=== PATIENT | female | born 1980 | race Caucasian/White ===

== ENCOUNTER 2019-09-08 11:14 | Emergency (ER) | payer MEDICAID, OTHER ==
[~2019-09-08] VITALS: Ht 162 cm; Wt 77.4 kg
[~2019-09-08 11:14] MED LIST: AMOX500C2 PO; ANTI14DR4 OT; CLON1TAB36 PO; HYDR-3456 PO; HYDR-3720 PO; ONDA8TAB13 PO; PRD20T PO; TRAM50TA2 PO
--- NOTE | 2019-09-08 11:40 | ED Chest Pain ---
General Chief Complaint: Chest Wall Stated Complaint: R BREAST PAIN Nursing Triage Note: Pt presents to ed with complaints of r breast and r rib cage pain x 3 days. Pt reports she was leaning over the cab of the truck three days ago and felt a "pop" around her r breast area. Pt states it took her breath away. pt reports she was playing with her 3 year old grandson last night and got kicked in the same area which has increased her discomfort. pt reports movement and deep breaths increase her pain. Nursing Sepsis Screen: No Definite Risk Source: patient Exam Limitations: no limitations History of Present Illness Date Seen by Provider: Sep 08, 2019 Time Seen by Provider: 11:38 Initial Comments To ER for further vehicle from home with reports of right lateral chest wall pain that began after bending over the truck and she felt a popping sensation in this location. She's had persistent pain with movement and deep breathing since then, was accidentally kicked by her grandson in this area last night which exacerbated the pain. She took ibuprofen this morning and denies improvement in pain. Timing/Duration: 2-3 days Severity/Quality: moderate Location: other (right lateral chest) Radiation: no radiation Activities at Onset: none ASA po DOG CATCHER: No NTG SL DOG CATCHER: No Associated Symptoms: No shortness of breath Allergies and Home Medications Allergies Coded Allergies: No Known Drug Allergies (Unverified , 12/14/13) Home Medications No Active Prescriptions or Reported Meds Patient Home Medication List Home Medication List Reviewed: Yes Review of Systems Review of Systems Constitutional: see HPI EENTM: No Symptoms Reported Respiratory: No Symptoms Reported Cardiovascular: See HPI, Chest Pain Gastrointestinal: See HPI Genitourinary: No Symptoms Reported Musculoskeletal: no symptoms reported Skin: no symptoms reported Psychiatric/Neurological: No Symptoms Reported Endocrine: No Symptoms Reported Hematologic/Lymphatic: No Symptoms Reported Past Zafemwc-Xqjuzu-Pohyvv Hx Patient Social History Alcohol Use: Denies Use Recreational Drug Use: No Smoking Status: Current Everyday Smoker Type Used: Cigarettes Recent Foreign Travel: No Contact w/Someone Who Travel: No Recent Infectious Disease Expo: No Physical Abuse: No Sexual Abuse: No Mistreated: No Fear: No Past Medical History Surgeries: Yes (LAP ABD SURG) Gallbladder, Hysterectomy, 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 Respiratory: No Cardiac: Yes Neurological: Yes 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 oz. 68.293299hr; 29.00 BMI Method:Stated General Appearance: No Apparent Distress, WD/WN Neck: Full Range of Motion, Normal Inspection Respiratory: No Accessory Muscle Use, No Respiratory Distress, Other (right lateral chest wall tenderness palpation without crepitus, no ecchymosis or erythema.) Cardiovascular: Regular Rate, Rhythm, Normal Peripheral Pulses Gastrointestinal: Normal Bowel Sounds, Non Tender, Soft Extremity: Normal Capillary Refill, Normal Inspection Neurologic/Psychiatric: Alert, Oriented x3 Skin: Normal Color, Warm/Dry Progress/Results/Core Measures Results/Orders My Orders Orders - SHAMEKA SAM APRN Ribs/Unilateral With Chest (09/08/19 11:35) Vital Signs/I&O 09/08/19 11:26 Temp 36.6 Pulse 67 Resp 18 B/P (MAP) 124/82 (96) Pulse Ox 99 Blood Pressure Mean: 96 POS Departure Impression Primary Impression: Rib pain Disposition: 01 HOME, SELF-CARE Condition: Stable Departure-Patient Inst. Decision time for Depature: 12:21 Referrals: NO,LOCAL PHYSICIAN (PCP/Family) Primary Care Physician Patient Instructions: Chest Pain (DC) Add. Discharge Instructions: 1. Medication as directed 2. Follow-up with your doctor next week 3. When this pain medication runs out use Tylenol and ibuprofen. Scripts Hydrocodone/Acetaminophen ([place] 5-325 Tablet) 1 Each Tablet 1 TAB PO Q4-6HR for Pain MDD 10 TABS for 7 Days, #10 TAB Prov: SHAMEKA SAM APRN 09/08/19 Images Torso/Trunk 1 - Tenderness SHAMEKA SAM APRN Sep 08, 2019 11:40 POS
[2019-09-08] MEDS ORDERED: HYDR-4226 PO (12:22)
--- NOTE | 2019-09-08 12:24 | Diagnostic Imaging Report ---
INDICATION: Pain. COMPARISON: None available. TECHNIQUE: Four radiographs of the chest and right-sided ribs dated September 08, 2019. FINDINGS: The cardiac silhouette and pulmonary vasculature are within normal limits. The lungs are clear. No pleural effusion. No pneumothorax. Surgical clips within the right upper quadrant of the abdomen. No displaced or healing rib fracture. No suspicious radiopaque foreign body. IMPRESSION: 1. No acute cardiopulmonary abnormality. 2. No displaced or healing rib fracture. Dictated by: Dictated on workstation # [id number]
[2019-09-08] MEDS ORDERED: HYDROcodone/APAP 5 MG/325 MG (LORTAB) TAB PO ONE (12:30)
[2019-09-08 12:50] VITALS: BP 120/81
== END 2019-09-08 12:45 | disposition home or self-care (01) ==
LOC: EDUNIT# 11:14 → ER 11:17
DX: R07.81 Pleurodynia (principal); F17.210 Nicotine dependence, cigarettes, uncomplicated; Z90.710 Acquired absence of both cervix and uterus; Z98.51 Tubal ligation status
CPT/HCPCS: 71101

== ENCOUNTER 2019-09-25 14:26 | Emergency (ER) | payer MEDICAID ==
[~2019-09-25] VITALS: Ht 162 cm; Wt 83.0 kg
[~2019-09-25 14:26] MED LIST changes: +HYDR-4226 PO
[2019-09-25] MEDS ORDERED: LIDOCAINE 1% INJ 20 ML 20 ML VIAL INJ ONE (15:00)
[2019-09-25] MEDS ORDERED: KETOROLAC 30 MG/ML VIAL IVP ONE (15:00)
--- NOTE | 2019-09-25 15:00 | ED Lower Extremity ---
General Chief Complaint: Skin/Wound Problems Stated Complaint: RT GREAT TOENAIL PAIN Nursing Triage Note: 1 week ago, rt great toe red arounf nail, nail is curving in Nursing Sepsis Screen: No Definite Risk Source: patient Exam Limitations: no limitations History of Present Illness Date Seen by Provider: Sep 25, 2019 Time Seen by Provider: 14:47 Initial Comments The patient presents to ER by private conveyance with chief complaint last several days progressively worsening pain and redness swelling along the medial side of her right great toe and the lateral side as well. She's not having any discharge fever or chills. She is not diabetic. She is not immunocompromised. She has not been using anything for pain. Allergies and Home Medications Allergies Coded Allergies: No Known Drug Allergies (Unverified , 12/14/13) Home Medications Hydrocodone/Acetaminophen 1 Each Tablet, 1 TAB PO Q4-6HR Prescribed by: SHAMEKA SAM on 09/08/19 1222 Patient Home Medication List Home Medication List Reviewed: Yes Review of Systems Constitutional: No chills, No diaphoresis EENTM: No hearing loss, No blurred vision Respiratory: No cough, No short of breath Cardiovascular: No chest pain, No edema Gastrointestinal: No abdominal pain, No nausea Genitourinary: No discharge, No dysuria Past Pwfbihx-Hmmwdw-Vmvizt Hx Patient Social History Alcohol Use: Occasionally Uses Recreational Drug Use: Yes Drug of Choice: THC Type Used: Cigarettes 2nd Hand Smoke Exposure: No Recent Foreign Travel: No Contact w/Someone Who Travel: No Recent Infectious Disease Expo: No Recent Hopitalizations: No Physical Abuse: No Sexual Abuse: No Mistreated: No Fear: No Past Medical History Surgeries: Yes (LAP ABD SURG) Gallbladder, Hysterectomy, Orthopedic, 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 Respiratory: No Cardiac: No Neurological: Yes Headaches /Migraines Reproductive Disorders: No 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 oz. 68.036528zc; 31.00 BMI Method:Stated General Appearance: WD/WN, no apparent distress HEENT: PERRL/EOMI, pharynx normal Cardiovascular: normal peripheral pulses, regular rate, rhythm, no edema Respiratory: no respiratory distress, no accessory muscle use Feet: left foot non-tender, left foot normal inspection; bilateral foot normal range of motion; left foot no evidence of injury; right foot pain (great toe), right foot soft tissue tenderness, right foot swelling Neurologic/Psychiatric: no motor/sensory deficits, alert, oriented x 3 Skin: other (erythema, mild swelling around the ingrown toenail right great toe medial and lateral) Procedures/Interventions Progress Risks, benefits and alternatives were explained. The patient consented to doing right great toe and lateral paronychia incision and drainage. Site was cleaned thoroughly with Betadine and allowed to dry and then cleaned again with alcohol. A digital block was performed using a total of 5 cc 1% lidocaine without epinephrine. When the patient was determined to be anesthetized we used scissors, hemostat and needle charter and tour bus driver to elevate the medial edge of the great toe nail and then cut and Removed it followed by the lateral edge. Patient tolerated procedure well. Progress/Results/Core Measures Results/Orders My Orders Orders - PRASHANT COLLINS Ketorolac Injection (Toradol Injection) (09/25/19 15:00) Lidocaine 1% Inj 20 Ml (Xylocaine 1% Inj (09/25/19 15:00) Medications Given in ED Current Medications Medications Dose Ordered Sig/Sena Route Start Time Stop Time Status Last Admin Dose Admin Ketorolac Tromethamine 30 mg ONCE ONCE IVP 09/25/19 15:00 09/25/19 15:01 DC 09/25/19 15:06 30 MG Vital Signs/I&O 09/25/19 14:44 Temp 36.8 Pulse 87 Resp 14 B/P (MAP) 112/74 (87) Pulse Ox 97 Blood Pressure Mean: 87 POS Progress Progress Note : Time: 14:59 Progress Note Discuss surgical treatment for paronychia and she agrees to pursue this. We'll plan to do a digital block. Prophylactic antibiotics for 5 days. Departure Impression Primary Impression: Paronychia due to ingrown nail Disposition: HOME, SELF-CARE Condition: Improved Departure-Patient Inst. Decision time for Depature: 15:46 Referrals: [facility] (PCP) Primary Care Physician SHANTHI JARRELL APRN (Family) Primary Care Physician Patient Instructions: Paronychia (DC), Wound Incision and Drainage (DC) Add. Discharge Instructions: Keep the wound clean with regular soap and water only. Treatment with Vaseline followed by gauze changed daily until the skin heals over. Take the Bactrim one tablet twice a day for the next 5 days to prevent infection. Follow-up primary care if you have worsening redness swelling and pain. Naproxen 2 tablets twice daily as needed for pain. Elevate the foot, use warm compresses and wear well fitting, ventilated shoes that will protect the toenail from damage. Change the dressing daily and as often as it becomes soiled. All discharge instructions reviewed with patient and/or family. Voiced understanding. Scripts Sulfamethoxazole/Trimethoprim (Bactrim Ds Tablet) 1 Each Tablet 1 EACH PO BID WITH MEALS for 5 Days, #10 TAB 0 Refills Prov: PRASHANT COLLINS 09/25/19 PRASHANT COLLINS Sep 25, 2019 15:00 POS
[2019-09-25] MEDS ORDERED: SULF1TAB35 PO (15:49)
[2019-09-25] MEDS ORDERED: HYDR-3990 PO (15:51)
[2019-09-25 16:02] VITALS: BP 128/71
[2019-09-25] MEDS ORDERED: OXYC5CAP18 PO (17:01)
== END 2019-09-25 16:02 | disposition home or self-care (01) ==
LOC: EDUNIT# 14:26 → ER 14:27
DX: L03.031 Cellulitis of right toe (principal); L60.0 Ingrowing nail; G43.909 Migraine, unspecified, not intractable, without status migrainosus; M51.36 Other intervertebral disc degeneration, lumbar region; Z90.710 Acquired absence of both cervix and uterus; Z98.51 Tubal ligation status
CPT/HCPCS: 99284

== ENCOUNTER 2020-03-11 17:28 | Emergency (ER) | payer MEDICAID ==
[~2020-03-11] VITALS: Ht 162 cm; Wt 90.0 kg
[~2020-03-11 17:28] MED LIST changes: +HYDR-3990 PO; +OXYC5CAP18 PO; +SULF1TAB35 PO
--- NOTE | 2020-03-11 17:43 | ED GU-Female ---
General Stated Complaint: L EAR PAIN,STD CHECK,THROAT PAIN Source: patient Exam Limitations: no limitations (PRASHANT COLLINS) History of Present Illness Date Seen by Provider: March 11, 2020 Time Seen by Provider: 17:30 Initial Comments Patient present ER by private conveyance with chief complaint of one week white, malodorous discharge from the vagina. She is sexually active with one partner read she prefers men over females. She is having no fevers abdominal pain diarrhea or constipation. She also had some pain in her ears right worse than left. No discharge. She has a bit of a sore throat but no difficulty swallowing fluids, food or air. In the past she had gonorrhea several years ago. She was appropriately treated at that time. She says she's here visiting family and friends. She says her partner will not talk to her after telling him about her discharge so she does not know if he has any symptoms. (PRASHANT COLLINS) Allergies and Home Medications Allergies Coded Allergies: No Known Drug Allergies (Unverified , 12/14/13) Home Medications Hydrocodone/Acetaminophen 1 Each Tablet, 1 TAB PO Q4-6HR Prescribed by: SHAMEKA SAM on 09/08/19 1222 Metronidazole 500 Mg Tablet, 500 MG PO BID Prescribed by: SHAMEKA SAM on 03/11/20 1812 Oxycodone HCl 5 Mg Capsule, 5 MG PO Q6H PRN for markel Prescribed by: PRASHANT COLLINS on 09/25/19 1701 Sulfamethoxazole/Trimethoprim 1 Each Tablet, 1 EACH PO BID WITH MEALS Prescribed by: PRASHANT COLLINS on 09/25/19 1549 Patient Home Medication List Home Medication List Reviewed: Yes (PRASHANT COLLINS) Review of Systems Review of Systems Constitutional: No chills, No diaphoresis EENTM: see HPI, ear pain, throat pain; No ear discharge, No hoarseness, No nose congestion, No throat swelling Respiratory: No cough, No short of breath Cardiovascular: No chest pain, No palpitations Gastrointestinal: No abdominal pain, No nausea Genitourinary: burning, discharge; denies dysuria : No Musculoskeletal: No back pain, No joint pain (PRASHANT COLLINS) All Other Systemes Reviewed Negative Unless Noted: Yes (PRASHANT COLLINS) Past Bcqlrwp-Zdpwrp-Wqksgi Hx Patient Social History Alcohol Use: Denies Use Recreational Drug Use: Yes Drug of Choice: THC Smoking Status: Current Everyday Smoker Type Used: Cigarettes 2nd Hand Smoke Exposure: No Recent Foreign Travel: No Contact w/Someone Who Travel: No Recent Hopitalizations: No (PRASHANT COLLINS) Past Medical History Surgeries: Yes (LAP ABD SURG) Gallbladder, Hysterectomy, Orthopedic, 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 Respiratory: No Cardiac: No Neurological: Yes Headaches /Migraines 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 oz. 68.186428ui; 31.00 BMI Method:Stated General Appearance: WD/WN, no apparent distress HEENT: PERRL/EOMI, TMs normal (clear mucoid effusion without bulging or retr action), pharyngeal erythema; No tonsillar exudate Neck: non-tender, supple, normal inspection Cardiovascular: normal peripheral pulses, regular rate, rhythm Respiratory: no respiratory distress, no accessory muscle use Gastrointestinal: non tender, soft Pelvic: normal external exam, discharge (thin yellowish white vaginal discharge) Neurologic/Psychiatric: alert, normal mood/affect, oriented x 3 Skin: normal color, warm/dry (PRASHANT COLLINS) Progress/Results/Core Measures Suspected Sepsis SIRS Temperature: Pulse: Respiratory Rate: Blood Pressure / Mean: (PRASHANT COLLINS) Results/Orders Lab Results Laboratory Tests Test 03/11/20 17:36 03/11/20 17:58 Range/Units Group A Streptococcus Screen NEGATIVE NEGATIVE (SHAMEKA SAM APRN) My Orders Orders - SHAMEKA SAM APRN Acetaminophen Tablet (Tylenol Tablet) (03/11/20 18:00) Ibuprofen Tablet (Motrin Tablet) (03/11/20 18:00) (SHAMEKA SAM APRN) Vital Signs/I&O Capillary Refill : (PRASHANT COLLINS) Progress Note : Time: 17:41 Progress Note Syphilis, gonorrhea, chlamydia swabs in the vagina down to the cervix. Wet prep. Rapid strep with subsequent throat culture. She has some clear mucoid effusion so we'll recommend Flonase for her ear pain. (PRASHANT COLLINS) Departure Impression Primary Impression: Otitis media with effusion Qualified Codes: H65.93 - Unspecified nonsuppurative otitis media, bilateral Additional Impressions: Vaginal discharge Trichomoniasis Disposition: HOME, SELF-CARE Condition: Stable Departure-Patient Inst. Decision time for Depature: 18:30 (PRASHANT COLLINS) Referrals: [facility]/ (PCP) Primary Care Physician SHANTHI JARRELL APRN (Family) Primary Care Physician Patient Instructions: STD Prevention, Serous Otitis Media (DC), Trichomoniasis (DC) Add. Discharge Instructions: We will call you with the results of your tests (chlaymdia, gonorrhea, syphilis) in the next 3-4 days.You were positive for Trichomomas tonight. You may follow-up with your primary care doctor to discuss results as well. 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 Scripts Metronidazole (Flagyl) 500 Mg Tablet 500 MG PO BID, #14 TAB Prov: SHAMEKA SAM APRN 03/11/20 PRASHANT COLLINS March 11, 2020 17:43 SHAMEKA SAM APRN March 11, 2020 18:12
[2020-03-11] MEDS ORDERED: AZITHROMYCIN 250 MG TAB (ZITHROMAX) PO ONE (18:00)
[2020-03-11] MEDS ORDERED: cefTRIAXone 250 MG/ML vial (IM ONLY) IM ONE (18:00)
[2020-03-11] MEDS ORDERED: IBUPROFEN 800 MG (MOTRIN) TAB PO ONE (18:00)
[2020-03-11] MEDS ORDERED: LIDOCAINE 1% INJ 20 ML 20 ML VIAL INJ ONE (18:00)
[2020-03-11] MEDS ORDERED: ACETAMINOPHEN 500 MG TAB (TYLENOL) PO ONE (18:00)
[2020-03-11] MEDS ORDERED: METR500T PO (18:12)
[2020-03-11 18:31] VITALS: BP 113/87
== END 2020-03-11 18:54 | disposition home or self-care (01) ==
LOC: EDUNIT# 17:28 → ER 17:30
DX: H65.93 Unspecified nonsuppurative otitis media, bilateral (principal); N89.8 Other specified noninflammatory disorders of vagina; A59.01 Trichomonal vulvovaginitis; F17.210 Nicotine dependence, cigarettes, uncomplicated; Z98.51 Tubal ligation status; Z90.710 Acquired absence of both cervix and uterus
CPT/HCPCS: 36415; 86780; 87210; 87430; 87491; 87591; 96372

== ENCOUNTER 2022-03-05 08:16 | Emergency (ER) | payer SELFPAY ==
[~2022-03-05] VITALS: Ht 163 cm; Wt 90.0 kg
[~2022-03-05 08:16] MED LIST changes: +METR500T PO; -SULF1TAB35 PO; +SULF1TAB38 PO
[2022-03-05] MEDS ORDERED: AMOX500C2 PO (08:39)
--- NOTE | 2022-03-05 08:40 | ED EENT ---
History of Present Illness General Chief Complaint: Dental Problems/Pain Stated Complaint: TOOTH ACHE Nursing Triage Note: PT STATES RT UPPER TOOTH PAIN THAT IS RADIATING TO HER EAR SINCE YESTERDAY Source: patient Exam Limitations: no limitations History of Present Illness Date Seen by Provider: March 05, 2022 Time Seen by Provider: 08:25 Initial Comments Right upper lateral incisor is chipped and causing her some pain for the past day and a half. No drainage. No bleeding. She has an appointment with a dentist in about a month. She is not on antibiotics. She says the pain is radiating into her right ear now. Allergies and Home Medications Allergies Coded Allergies: No Known Drug Allergies (Unverified , 12/14/13) Patient Home Medication List Home Medication List Reviewed: Yes Hydrocodone/Acetaminophen (Hydrocodone/Acetaminophen 5 MG/325 MG TAB) 1 Each Tablet, 1 TAB PO Q4-6HR Prescribed by: SHAMEKA SAM on 09/08/19 1222 Metronidazole (Flagyl) 500 Mg Tablet, 500 MG PO BID Prescribed by: SHAMEKA SAM on 03/11/20 1812 Oxycodone HCl (Oxycodone HCl) 5 Mg Capsule, 5 MG PO Q6H PRN for markel Prescribed by: PRASHANT COLLINS on 09/25/19 1701 Sulfamethoxazole/Trimethoprim (Bactrim Ds Tablet) 1 Each Tablet, 1 EACH PO BID WITH MEALS Prescribed by: PRASHANT COLLINS on 09/25/19 1549 Review of Systems Review of Systems Constitutional: No chills, No diaphoresis Eyes: Denies Blindness, Denies Drainage Ears: Denies Dizziness; Pain Nose: denies clots, denies congestion Mouth: see HPI, pain; denies swelling, denies purulent discharge Past Neaixai-Ddgrsq-Ptevwm Hx Patient Social History Tobacco Use?: Yes Smoking Status: Current Someday Smoker Substance use?: No Alcohol Use?: No Past Medical History Surgery/Hospitalization HX: BACK, HYST, GALLBLADDER, EXPLOR LAP Surgeries: Yes (LAP ABD SURG) Gallbladder, Hysterectomy, Orthopedic, 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 Respiratory: No Cardiac: No Neurological: Yes Headaches /Migraines 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 oz. 68.304307gj; 33.00 BMI Method:Stated General Appearance: WD/WN, no apparent distress Eyes: bilateral eye normal inspection, bilateral eye PERRL, bilateral eye EOMI Ears: bilateral ear auricle normal, bilateral ear canal normal, bilateral ear other (Bilateral TMs with mucoid effusion and retraction but no erythema injection or loss of landmarks.) Nose: normal inspection; No discharge Mouth/Throat: other (Extensive dental caries without fluctuance or pointing. Tenderness to the right upper maxillary teeth) Progress/Results/Core Measures Results/Orders My Orders Orders - PRASHANT COLLINS Ketorolac Injection (Toradol Injection) (03/05/22 08:45) Lidocaine 2% Viscous 15 Ml (Xylocaine Vi (03/05/22 08:45) Vital Signs/I&O 03/05/22 08:22 Temp 36.5 Pulse 60 Resp 18 B/P (MAP) 131/85 (100) Pulse Ox 97 O2 Delivery Room Air Blood Pressure Mean: 100 Progress Progress Note : Time: 08:38 Progress Note Toradol, viscous lidocaine and amoxicillin Departure Impression Primary Impression: Dental abscess Disposition: 01 HOME, SELF-CARE Condition: Stable Departure-Patient Inst. Decision time for Depature: 08:38 Referrals: [facility] (PCP) Primary Care Physician SOULEYMANE TAVERAS APRN (Family) Primary Care Physician Patient Instructions: Dental Pain (DC) Add. Discharge Instructions: Amoxicillin 500 mg 3 times a day for 7 to 10 days until the pain resolves. Keep your follow-up appointments with a dentist. Viscous lidocaine 5 cc on gauze packed over the tooth in question every 6 hours as needed for pain. Ibuprofen 800 mg every 8 hours as needed for pain. Tylenol 1000 g every 8 hours as needed for pain. Warm compresses as needed for pain. All discharge instructions reviewed with patient and/or family. Voiced understanding. Scripts Amoxicillin (Amoxicillin) 500 Mg Capsule 500 MG PO TID for 10 Days, #30 CAP 0 Refills Prov: PRASHANT COLLINS 03/05/22 Work/School Note: Work Release Form Date Seen in the Emergency Department: March 05, 2022 Return to Work: March 06, 2022 Restrictions: No Restrictions PRASHANT COLLINS March 05, 2022 08:39
[2022-03-05] MEDS ORDERED: LIDOCAINE 2% VISCOUS 15 ML UDC PO ONE (08:45)
[2022-03-05] MEDS ORDERED: KETOROLAC 60 MG/2 ML VIAL IM ONE (08:45)
[2022-03-05 09:13] VITALS: BP 131/85
== END 2022-03-05 09:13 | disposition home or self-care (01) ==
LOC: EDUNIT# 08:16 → ER 08:18
DX: K04.7 Periapical abscess without sinus (principal); F17.200 Nicotine dependence, unspecified, uncomplicated
CPT/HCPCS: 96372; 99282

== ENCOUNTER 2022-03-07 00:27 | Emergency (ER) | payer SELFPAY ==
[2022-03-07] MEDS ORDERED: methylPREDNISolone 125 MG (Solu-MEDROL) VIAL IVP ONE (02:30)
[2022-03-07] MEDS ORDERED: CLINDAMYCIN 600 MG/4ML (CLEOCIN) VIAL IV STA (02:30)
[2022-03-07] MEDS ORDERED: KETOROLAC 30 MG/ML VIAL ONE (02:37)
[2022-03-07] MEDS ORDERED: diphenhydrAMINE 50 MG/ML INJ (BENADRYL) IVP ONE (02:45)
[2022-03-07] MEDS ORDERED: KETOROLAC 15 MG/ML VIAL IVP ONE (02:45)
--- NOTE | 2022-03-07 03:13 | ED EENT ---
History of Present Illness General Chief Complaint: Dental Problems/Pain Stated Complaint: INFECTED TOOTH,SWOLLEN FACE,PAIN Nursing Triage Note: PT AMB TO [facility] 4 WITH C/O WORSENING PAIN IN TOOTH AND THINKS THE INFECTION IS MOVING TO HER CHEEK AND EYE History of Present Illness Date Seen by Provider: March 07, 2022 Time Seen by Provider: 02:00 Initial Comments 42-year-old female is here with complaints of dental caries and dental pain with swelling in her face and mouth area which started after she took amoxicillin for the tooth pain. Patient was in the ER 2 days ago was given a prescription of am oxicillin and was told to see a dentist. Patient has a dental appointment in March, but must continue walking this week when she developed swelling in her lower part of her face after she took the amoxicillin. Denies shortness of breath, chest pain, headache, dizziness, fever, diarrhea, abdominal pain. Patient has never had this reaction before. Allergies and Home Medications Allergies Coded Allergies: No Known Drug Allergies (Unverified , 12/14/13) Patient Home Medication List Home Medication List Reviewed: Yes Amoxicillin (Amoxicillin) 500 Mg Capsule, 500 MG PO TID Prescribed by: PRASHANT COLLINS on 03/05/22 0839 Hydrocodone/Acetaminophen (Hydrocodone/Acetaminophen 5 MG/325 MG TAB) 1 Each Tablet, 1 TAB PO Q4-6HR Prescribed by: SHAMEKA SAM on 09/08/19 1222 Metronidazole (Flagyl) 500 Mg Tablet, 500 MG PO BID Prescribed by: SHAMEKA SAM on 03/11/20 1812 Oxycodone HCl (Oxycodone HCl) 5 Mg Capsule, 5 MG PO Q6H PRN for markel Prescribed by: PRASHANT COLLINS on 09/25/19 1701 Sulfamethoxazole/Trimethoprim (Bactrim Ds Tablet) 1 Each Tablet, 1 EACH PO BID WITH MEALS Prescribed by: PRASHANT COLLINS on 09/25/19 1549 Review of Systems Review of Systems Constitutional: no symptoms reported Eyes: No Symptoms Reported Ears: No Symptoms Reported Nose: no symptoms reported Mouth: loose teeth, pain, other (dental caries which are extensive with gingival swelling) Throat: no symptoms reported Respiratory: no symptoms reported Cardiovascular: no symptoms reported Gastrointestinal: no symptoms reported Musculoskeletal: no symptoms reported Skin: no symptoms reported Neurological: No Symptoms Reported Hematologic/Lymphatic: No Symptoms Reported Immunological/Allergic: no symptoms reported Past Hghrcxb-Wffeay-Vserbq Hx Patient Social History Tobacco Use?: Yes Tobacco type used: Cigarettes Smoking Status: Current Everyday Smoker Substance use?: No Alcohol Use?: No Pt feels they are or have been: No Past Medical History Surgery/Hospitalization HX: BACK, HYST, GALLBLADDER, EXPLOR LAP Surgeries: Yes (LAP ABD SURG) Gallbladder, Hysterectomy, Orthopedic, 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 Respiratory: No Cardiac: No Neurological: Yes Headaches /Migraines Reproductive Disorders: No 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 oz. 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 ABDOMINAL PAIN:- NPO- CT ABDOMEN:- CBC/ CMP- Lipase- UA- Stool studies/ C. Diff- Troponin- Lactic acid- NS IVFTo upper lip and cheeks area on face with mild erythema) Progress/Results/Core Measures Results/Orders My Orders Orders - MAGGIE BORDEN MD Clindamycin Injection (Cleocin Injection (03/07/22 02:30) Methylprednisolone Sod Succ (Solu-Medrol (03/07/22 02:30) Diphenhydramine Injection (Benadryl Inje (03/07/22 02:45) Ketorolac Injection (Toradol Injection) (03/07/22 02:45) Ketorolac Injection (Toradol Injection) (03/07/22 02:37) Medications Given in ED Current Medications Medications Dose Ordered Sig/Sean Route Start Time Stop Time Status Last Admin Dose Admin Diphenhydramine HCl 25 mg ONCE ONCE IVP 03/07/22 02:45 03/07/22 02:46 DC 03/07/22 02:41 25 MG Ketorolac Tromethamine 15 mg ONCE ONCE IVP 03/07/22 02:45 03/07/22 02:46 DC 03/07/22 02:42 15 MG Methylprednisolone Sodium Succinate 125 mg ONCE ONCE IVP 03/07/22 02:30 03/07/22 02:33 DC 03/07/22 02:41 125 MG Vital Signs/I&O 03/07/22 00:43 Temp 35.9 Pulse 71 Resp 16 B/P (MAP) 100/60 (73) Blood Pressure Mean: 73 Progress Progress Note : Progress Note 1. DENTAL CARIES & GINGIVITIS - Stop Amoxicillin which was prescribed 2 days ago. 2. DRUG ALLERGY vs GINGIVITIS SWELLING AND INFECTION SPREADING TO THE FACE: - Clindamycin iv STAT with prescription sent home for 7 days. No respiratory distress. - Benadry. iv/ Solumedrol iv - NS IVF -The patient was seen in the ED, and treated appropriately to presentation at a specific point in time. Patient is informed that there is a possibility that disease and illness can evolve and change in acuity rapidly or slowly after patient is discharged from the ER. Precautionary advice given to the patient for immediate return to ER if symptoms worsen or do not resolve, and to seek emergency care sooner rather than later. Pt also advised on the importance of PCP follow up and compliance with management and follow up plan with PCP and/or specialist, as this is part of the management plan. Pt verbally expressed understanding. Departure Impression Primary Impression: Dental caries Additional Impressions: Gingivitis Allergy to amoxicillin Cellulitis and abscess of face Disposition: HOME, SELF-CARE Condition: Improved Departure-Patient Inst. Referrals: [facility] [place] Primary Care Physician SOULEYMANE TAVERAS APRN (Family) Primary Care Physician Patient Instructions: Dental Pain, Drug Allergy, Cellulitis (Skin Infection), Adult (DC), Tooth Decay, Adult (DC), Drug Allergy Add. Discharge Instructions: F/u as walk in to dental clinic tomorrow morning Clindamycin BID for 7 days F/u with PCP All discharge instructions reviewed with patient and/or family. Voiced unde rstanding. MAGGIE BORDEN MD March 07, 2022 03:13
[2022-03-07] MEDS ORDERED: CLIN-144 PO (03:36)
[2022-03-07 03:43] VITALS: BP 105/65
== END 2022-03-07 03:45 | disposition home or self-care (01) ==
LOC: EDUNIT# 00:27 → ER 00:31
DX: K05.10 Chronic gingivitis, plaque induced (principal); K02.9 Dental caries, unspecified; L03.211 Cellulitis of face; L02.01 Cutaneous abscess of face; F17.210 Nicotine dependence, cigarettes, uncomplicated; Z88.1 Allergy status to other antibiotic agents

== ENCOUNTER 2022-03-28 13:36 | Emergency (ER) | payer SELFPAY ==
[~2022-03-28] VITALS: Ht 162.5 cm; Wt 90.0 kg
[~2022-03-28 13:36] MED LIST changes: +CLIN-144 PO
--- NOTE | 2022-03-28 14:44 | ED General ---
General Chief Complaint: COVID19 Suspect/Confirmed Stated Complaint: FEVER,CHILLS Nursing Triage Note: PT AMB TO ED BY POV WITH C/O NAUSEA, SOTO, SOB, CHILLS, WEAKNESS, AND ACHINESS FOR THE LAST WEEK AND A HALF. Source of Information: Patient Exam Limitations: No Limitations History of Present Illness Date Seen by Provider: Mar 28, 2022 Time Seen by Provider: 14:34 Initial Comments This is a 42-year-old female who presented to the ER with complaints of nausea, weakness, abdominal pain, decreased appetite for the past week. States that she ran out of her Lyrica and initially thought that her symptoms were related to withdrawal. She is unable to afford this medication. Allergies and Home Medications Allergies Coded Allergies: No Known Drug Allergies (Unverified , 12/14/13) Patient Home Medication List Amoxicillin (Amoxicillin) 500 Mg Capsule, 500 MG PO TID Prescribed by: PRASHANT COLLINS on 03/05/22 0839 Clindamycin HCl (Clindamycin HCl) 300 Mg Capsule, 600 MG PO BID WITH MEALS Prescribed by: MAGGIE BORDEN MD on 03/07/22 0336 Hydrocodone/Acetaminophen (Hydrocodone/Acetaminophen 5 MG/325 MG TAB) 1 Each Tablet, 1 TAB PO Q4-6HR Prescribed by: SHAMEKA SAM on 09/08/19 1222 Metronidazole (Flagyl) 500 Mg Tablet, 500 MG PO BID Prescribed by: SHAMEKA SAM on 03/11/20 1812 Oxycodone HCl (Oxycodone HCl) 5 Mg Capsule, 5 MG PO Q6H PRN for markel Prescribed by: PRASHANT COLLINS on 09/25/19 1701 Sulfamethoxazole/Trimethoprim (Bactrim Ds Tablet) 1 Each Tablet, 1 EACH PO BID WITH MEALS Prescribed by: PRASHANT COLLINS on 09/25/19 1549 Past Vqglwnk-Kpfqvo-Bqmfbp Hx Patient Social History Tobacco Use?: Yes Tobacco type used: Cigarettes Smoking Status: Current Everyday Smoker Use of E-Cig and/or Vaping dev: No Substance use?: No Alcohol Use?: No Pt feels they are or have been: No Immunizations Up To Date Influenza Vaccine Up-to-Date: No; Not Current First/Initial COVID19 Vaccinat: N/A Past Medical History Surgery/Hospitalization HX: BACK, HYST, GALLBLADDER, EXPLOR LAP, FATTY LIVER, FIBROMYALGIA Surgeries: Yes (LAP ABD SURG) Gallbladder, Hysterectomy, Orthopedic, 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 Respiratory: No Cardiac: No Neurological: Yes Headaches /Migraines 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 oz. 68.942450ft; 34.00 BMI Method:Stated Progress/Results/Core Measures Suspected Sepsis SIRS Temperature: Pulse: 74 Respiratory Rate: 18 Laboratory Tests 03/28/22 14:52: White Blood Count 5.7 Blood Pressure 138 /95 Mean: 109 Laboratory Tests 03/28/22 14:52: Creatinine 0.68, Platelet Count 162, Total Bilirubin 0.6 Results/Orders Lab Results Laboratory Tests Test 03/28/22 13:53 03/28/22 14:52 Range/Units Influenza Type A (RT-PCR) Not Detected Not Detecte Influenza Type B (RT-PCR) Not Detected Not Detecte SARS-CoV-2 RNA (RT-PCR) Not Detected Not Detecte White Blood Count 5.7 4.3-11.0 10^3/uL Red Blood Count 4.93 3.80-5.11 10^6/uL Hemoglobin 14.9 11.5-16.0 g/dL Hematocrit 43 35-52 % Mean Corpuscular Volume 87 80-99 fL Mean Corpuscular Hemoglobin 30 25-34 pg Mean Corpuscular Hemoglobin Concent 35 32-36 g/dL Red Cell Distribution Width 13.6 10.0-14.5 % Platelet Count 162 130-400 10^3/uL Mean Platelet Volume 10.5 9.0-12.2 fL Immature Granulocyte % (Auto) 0 % Neutrophils (%) (Auto) 67 42-75 % Lymphocytes (%) (Auto) 24 12-44 % Monocytes (%) (Auto) 7 0-12 % Eosinophils (%) (Auto) 1 0-10 % Basophils (%) (Auto) 0 0-10 % Neutrophils # (Auto) 3.8 1.8-7.8 X 10^3 Lymphocytes # (Auto) 1.4 1.0-4.0 X 10^3 Monocytes # (Auto) 0.4 0.0-1.0 X 10^3 Eosinophils # (Auto) 0.0 0.0-0.3 10^3/uL Basophils # (Auto) 0.0 0.0-0.1 10^3/uL Immature Granulocyte # (Auto) 0.0 0.0-0.1 10^3/uL Urine Color YELLOW Urine Clarity CLEAR Urine pH 6.5 5-9 Urine Specific [place] <=1.005 1.016-1.022 Urine Protein NEGATIVE NEGATIVE Urine Glucose (UA) NEGATIVE NEGATIVE Urine Ketones NEGATIVE NEGATIVE Urine Nitrite NEGATIVE NEGATIVE Urine Bilirubin NEGATIVE NEGATIVE Urine Urobilinogen 0.2 < = 1.0 MG/DL Urine Leukocyte Esterase NEGATIVE NEGATIVE Urine RBC (Auto) NEGATIVE NEGATIVE Urine RBC NONE /HPF Urine WBC RARE /HPF Urine Squamous Epithelial Cells 0-2 /HPF Urine Crystals NONE /LPF Urine Bacteria NEGATIVE /HPF Urine Casts NONE /LPF Urine Mucus NEGATIVE /LPF Urine Culture Indicated NO Sodium Level 142 135-145 MMOL/L Potassium Level 3.5 L 3.6-5.0 MMOL/L Chloride Level 106 98-107 MMOL/L Carbon Dioxide Level 20 L 21-32 MMOL/L Anion Gap 16 H 5-14 MMOL/L Blood Urea Nitrogen 5 L 7-18 MG/DL Creatinine 0.68 0.60-1.30 MG/DL Estimat Glomerular Filtration Rate 111 BUN/Creatinine Ratio 7 Glucose Level 99 70-105 MG/DL Calcium Level 9.7 8.5-10.1 MG/DL Corrected Calcium 8.5-10.1 MG/DL Total Bilirubin 0.6 0.1-1.0 MG/DL Aspartate Amino Transf (AST/SGOT) 17 5-34 U/L Alanine Aminotransferase (ALT/SGPT) 33 0-55 U/L Alkaline Phosphatase 78 40-136 U/L Total Protein 8.0 6.4-8.2 GM/DL Albumin 4.7 H 3.2-4.5 GM/DL My Orders Orders - HERBERTH CORONEL APRN Covid 19 Inhouse Test (03/28/22 13:39) Influenza A And B By Pcr (03/28/22 13:39) Ondansetron Oral Dissolve Tab (Zofran (03/28/22 14:45) Cbc With Automated Diff (03/28/22 14:42) Comprehensive Metabolic Panel (03/28/22 14:42) Ua Culture If Indicated (03/28/22 14:42) Rx-Ondansetron Po (Rx-Zofran Po) (03/28/22 16:17) Medications Given in ED Current Medications Medications Dose Ordered Sig/Sena Route Start Time Stop Time Status Last Admin Dose Admin Ondansetron HCl 4 mg ONCE ONCE PO 03/28/22 14:45 03/28/22 14:46 DC 03/28/22 14:54 4 MG Vital Signs/I&O 03/28/22 13:50 Temp 37.0 Pulse 74 Resp 18 B/P (MAP) 138/95 (109) Pulse Ox 99 O2 Delivery Room Air Capillary Refill : Less Than 3 Seconds Blood Pressure Mean: 109 Departure Impression Primary Impression: Nausea Additional Impression: Diarrhea Disposition: 01 HOME, SELF-CARE Condition: Improved Departure-Patient Inst. Decision time for Depature: 16:20 Referrals: [facility] [place] Primary Care Physician SOULEYMANE TAVERAS APRN (Family) Primary Care Physician Patient Instructions: Dealing With Nausea and Vomiting From the Drugs You Take Add. Discharge Instructions: Plan: 1. Take Zofran one tablet every 6 hours a needed for nausea. 2. Follow up with your doctor for persistent symptoms. All discharge instructions reviewed with patient and/or family. Voiced understanding. HERBERTH CORONEL FOLDER INSPECTOR Mar 28, 2022 14:44
[2022-03-28] MEDS ORDERED: ONDANSETRON 4 MG (ZOFRAN) ORAL DISSOLVE TAB PO ONE (14:45)
[2022-03-28 15:02] LABS: BILIRUBIN,URINE NEGATIVE (NEGATIVE); CLARITY,URINE CLEAR; COLOR,URINE YELLOW; GLUCOSE, URINE (UA) NEGATIVE (NEGATIVE); KETONES,URINE NEGATIVE (NEGATIVE); LEUKOCYTE ESTERASE ,URINE NEGATIVE (NEGATIVE); NITRITE,URINE NEGATIVE (NEGATIVE); PH,URINE 6.5 (5-9); PROTEIN,URINE NEGATIVE (NEGATIVE)
[2022-03-28 15:04] LABS: BASOPHILS % (AUTO) 0 % (0-10); EOSINOPHILS % (AUTO) 1 % (0-10); HEMATOCRIT 43 % (35-52); HEMOGLOBIN 14.9 g/dL (11.5-16.0); LYMPHOCYTES # (AUTO) 1.4 X 10^3 (1.0-4.0); LYMPHOCYTES % (AUTO) 24 % (12-44); MEAN CORPUSCULAR HEMOGLOBIN 30 pg (25-34); MEAN CORPUSCULAR HGB CONC 35 g/dL (32-36); MEAN CORPUSCULAR VOLUME 87 fL (80-99); MEAN PLATELET VOLUME 10.5 fL (9.0-12.2); MONOCYTES # (AUTO) 0.4 X 10^3 (0.0-1.0); MONOCYTES % (AUTO) 7 % (0-12); NEUTROPHILS # (AUTO) 3.8 X 10^3 (1.8-7.8); NEUTROPHILS % (AUTO) 67 % (42-75); PLATELET COUNT 162 10^3/uL (130-400); WHITE BLOOD COUNT 5.7 10^3/uL (4.3-11.0)
[2022-03-28 15:19] LABS: ALBUMIN 4.7 GM/DL (3.2-4.5); CHLORIDE 106 MMOL/L (98-107); POTASSIUM 3.5 MMOL/L (3.6-5.0); SODIUM 142 MMOL/L (135-145)
[2022-03-28 15:20] LABS: CALCIUM 9.7 MG/DL (8.5-10.1)
[2022-03-28 15:21] LABS: GLUCOSE 99 MG/DL (70-105)
[2022-03-28 15:22] LABS: CARBON DIOXIDE 20 MMOL/L (21-32)
[2022-03-28 15:23] LABS: BILIRUBIN,TOTAL 0.6 MG/DL (0.1-1.0)
[2022-03-28 15:24] LABS: ALKALINE PHOSPHATASE 78 U/L (40-136)
[2022-03-28 15:25] LABS: CREATININE SERUM 0.68 MG/DL (0.60-1.30); GFR ESTIMATED 111
[2022-03-28 15:26] LABS: BUN/CREATININE RATIO 7
[2022-03-28 15:28] LABS: ALANINE AMINOTRANSFERASE 33 U/L (0-55)
[2022-03-28 15:55] LABS: BACTERIA,URINE NEGATIVE /HPF; SQUAMOUS EPITHELIAL CELL,UR 0-2 /HPF; WBC,URINE RARE /HPF
[2022-03-28] MEDS ORDERED: RX-ONDANSETRON 4 MG ODT (ZOFRAN) PPK #4 PO STA (16:17)
[2022-03-28 16:35] VITALS: BP 133/92
== END 2022-03-28 16:35 | disposition home or self-care (01) ==
LOC: EDUNIT# 13:36 → ER 13:37
DX: R19.7 Diarrhea, unspecified (principal); R11.0 Nausea; F17.210 Nicotine dependence, cigarettes, uncomplicated; Z20.822 Contact with and (suspected) exposure to COVID-19; Z28.310 Unvaccinated for COVID-19
CPT/HCPCS: 36415; 80053; 81000; 85025; 87636

== ENCOUNTER 2022-06-03 17:58 | Emergency (ER) | payer SELFPAY ==
[~2022-06-03] VITALS: Ht 162.6 cm; Wt 85.3 kg
--- NOTE | 2022-06-03 18:16 | ED Psychosocial ---
General Chief Complaint: Suicidal Ideation Risk Stated Complaint: PSYCH-SI Source: patient (NATO ZIMMER ) History of Present Illness Date Seen by Provider: Jun 03, 2022 Time Seen by Provider: 18:15 Initial Comments PT ARRIVES VIA POV FROM HOME C/O SUICIDAL IDEATIONS PT HAS EXTENSIVE PSYCH HISTORY INCLUDING: BIPOLAR, PTSD, DEPRESSION, ANXIETY, PANIC DISORDER, SUICIDAL IDEATIONS AND ATTEMPTS, WITH MULTIPLE PSYCH ADMITS--LAST ADMIT WAS IN 2018. PT WANTS TO BE ADMITTED TO INPATIENT PSYCH. STATES THAT IN THE PASTE SHE HAS TRIED TO CUT HERSELF, TRIED TO OVERDOSE, AND ONE TIME SHE "TRIED TO STEP IN FRONT OF A TRAIN" BUT DID NOT ACTUALLY DO IT. STATES SHE HAS HAD INCREASED DEPRESSION AND ANXIETY FOR THE LAST 3-4 DAYS, AND HAS HAD SUICIDAL THOUGHTS OF DRIVING INTO TRAFFIC PT HAS NOT ACTUALLY ATTEMPTED TO HARM HERSELF THIS TIME, OR ANY TIME RECENTLY DENIES ANY SPECIFIC TRIGGER STATES SHE HAS BEEN HOMELESS FOR THE LAST 8 YEARS, BUT CURRENTLY HAS AN APARTMENT-STRESSED ABOUT CAR PROBLEMS, WORRIED ABOUT LOSING HER APARTMENT AND BEING HOMELESS AGAIN, STRESSED ABOUT HER KIDS ( 3 KIDS ARE GROWN-[address] [facility], AND 1 IS IN [place]) PT JUST MOVED HERE IN OCTOBER FROM THE [place] AREA WAS ESTABLISHED WITH [facility] THERE, BUT HAS NOT BEEN THERE FOR AWHILE PRIOR TO MOVING HERE SHE HAD BEEN OUT OF HER MEDICATIONS FOR A MONTH OR TWO--STATES SHE COULDN'T AFFORD THEM SINCE SHE MOVED HERE, AND JUST [place], SO DECIDED TO COME HERE TODAY. 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 WORKED TODAY, AND LITERALLY SOON SHE ARRIVES IN ER, SHE IS CALLING HER BOSS TO TELL THEM SHE WON'T BE AT WORK TOMORROW. PT IS NOT COVID VACCINATED PCP: [facility] (NATO ZIMMER DO) Allergies and Home Medications Allergies Coded Allergies: No Known Drug Allergies (Unverified , 12/14/13) Patient Home Medication List Home Medication List Reviewed: Yes (EVELIO AGUILAR MD) Amoxicillin (Amoxicillin) 500 Mg Capsule, 500 MG PO TID Prescribed by: PRASHANT COLLINS on 03/05/22 0839 Clindamycin HCl (Clindamycin HCl) 300 Mg Capsule, 600 MG PO BID WITH MEALS Prescribed by: MAGGIE BORDEN MD on 03/07/22 0336 Hydrocodone/Acetaminophen (Hydrocodone/Acetaminophen 5 MG/325 MG TAB) 1 Each Tablet, 1 TAB PO Q4-6HR Prescribed by: SHAMEKA SAM on 09/08/19 1222 Metronidazole (Flagyl) 500 Mg Tablet, 500 MG PO BID Prescribed by: SHAMEKA SAM on 03/11/20 1812 Oxycodone HCl (Oxycodone HCl) 5 Mg Capsule, 5 MG PO Q6H PRN for markel Prescribed by: PRASHANT COLLINS on 09/25/19 1701 Sulfamethoxazole/Trimethoprim (Bactrim Ds Tablet) 1 Each Tablet, 1 EACH PO BID WITH MEALS Prescribed by: PRASHANT COLLINS on 09/25/19 1549 Review of Systems Constitutional: no symptoms reported EENTM: no symptoms reported Respiratory: no symptoms reported Cardiovascular: no symptoms reported Gastrointestinal: no symptoms reported Genitourinary: no symptoms reported : No Control/STD Prophylaxis: Other (HYSTERECTOMY) Musculoskeletal: no symptoms reported Skin: no symptoms reported Psychiatric/Neurological: See HPI, Anxiety, Depressed (NATO ZIMMER DO) Past Efvzhzh-Jfmppg-Gtheie Hx Patient Social History Tobacco Use?: Yes Tobacco type used: Cigarettes Smoking Status: Current Everyday Smoker Use of E-Cig and/or Vaping dev: Yes E-Cig or Vaping type used: Nicotine Use of E-Cig and/or Vaping Jimenez: Current Everyday User Substance use?: Yes Alcohol Use?: Yes Alcohol type: Beer, Hard Liquor, Wine Alcohol Frequency: Once in a while (NATO ZIMMER DO) Immunizations Up To Date First/Initial COVID19 Vaccinat: N/A (NATO ZIMMER DO) Past Medical History Surgery/Hospitalization HX: BACK, HYST, GALLBLADDER, EXPLOR LAP, FATTY LIVER, FIBROMYALGIA Surgeries: Yes (LAP ABD SURG) Abdominal, Gallbladder, Hysterectomy, Orthopedic, 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 Respiratory: No Cardiac: No Neurological: Yes Headaches /Migraines Reproductive Disorders: Yes Female Reproductive Disorders: Menstrual Problems 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, 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 Genitourinary: No Gastrointestinal: Yes (HEPATITIS C--NO TREATMENT; FATTY LIVER) Liver Disease/Jaundice, Hepatitis Musculoskeletal: Yes (disk replacement- lumbar) Degenerate Disk Disease, Fibromyalgia, Scoliosis, Chronic Back Pain Endocrine: No HEENT: Yes (DENTAL ISSUES) Cancer: No Psychosocial: Yes (MULTIPLE PSYCH ADMITS; PANIC DISORDER) Anxiety, PTSD, Suicide Attempts, Bipolar, Depression Integumentary: No Blood Disorders: Yes ("BLOOD CLOTTING DISEASE"--BUT NEVER 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 OR ANTICOAGULATION) (NATO ZIMMER DO) Family Medical History SOCIAL HISTORY: -SOMES 1 PPD OF CIGARETTES, PLUS VAPES NICOTINE DAILY -ETOH--HX OF ABUSE--STATES SHE "USED TO DRINK BOTTLES AND BOTTLES OF HARD LIQUOR EVERY DAY" --CLAIMS NOW SHE ONLY DRINKS "OCCASIONALLY"--CLAIMS SHE HAD WINE ABOUT 2 WEEKS AGO, PER PT 06/03/22 --DRUGS--EXTENSIVE HISTORY OF METH USE--+IV USE, ALSO SMOKED AND SNORTED IT. ALSO REGULAR THC USE. PAST SURGICAL HISTORY: -BACK SURGERY -CHOLECYSTECTOMY -HYSTERECTOMY/BILATERAL SALPINGO-OOPHORECTOMY -EXPLORATORY LAP -BILATERAL TUBAL LIGATION (NATO ZIMMER DO) Physical Exam Vital Signs - First Documented 06/03/22 18:05 Temp 36.1 Pulse 68 Resp 16 B/P (MAP) 136/99 (111) Pulse Ox 98 O2 Delivery Room Air (EVELIO AGUILAR MD) Capillary Refill : (NATO ZIMMER DO) Height, Weight, BMI Height: 5'5" Weight: 150lbs. oz. [id number]; 34.00 BMI Method:Stated General Appearance: WD/WN, no apparent distress, other (PLEASANT, TALKATIVE.) HEENT: PERRL/EOMI, other (POOR DENTITION) Neck: normal inspection Respiratory: normal breath sounds, no respiratory distress, no accessory muscle use Cardiovascular: regular rate, rhythm, no murmur Gastrointestinal: non tender, soft Extremities: normal inspection, no pedal edema, no calf tenderness, normal capillary refill Neurologic/Psychiatric: director title II-XII nml as tested, no motor/sensory deficits, alert, oriented x 3 Appearance/Memory: appropriate appearance, appropriate insight, neat, no memory impairment Behavior/Eye Contact: cooperative, good eye contact, normal speech Thoughts/Hallucinations: normal thought pattern, no apparent hallucination Skin: normal color, warm/dry (NATO ZIMMER K DO) Suicide Risk Suicide Risk Low Suicide Risk Level []Suicidal Ideation WITHOUT method, intent, plan or behavior more than a month ago []]Modifiable risk factors and strong protective factors []No reported history of suicidal ideation or behavior []Patient reports/exhibits symptoms consistent with psychosis []Patient reports a plan that would be unrealistic/impossible to complete and intent []Suicide attempt prior to arrival (Indicates at LEAST Low Suicide Risk, consider other risk factors) Moderate Suicide Risk Level: []Suicidal ideation with method, WITHOUT plan, intent or behavior in the past month []Multiple risk factors and few protective factors []Patient reports intent to follow through on plan to end life if allowed to leave hospital, and has attempted to elope from the hospital High Suicide Risk Level: [] Suicidal ideation with intent or intent with a plan in the past month [] Patient has harmed self or attempted suicide while in the hospital [] Patient has hx of or current Command Auditory hallucinations to harm self or others that they follow without hesitation [] Patient refuses to disclose plan, and indicates intent to complete [] Patient reports plan that is possible to accomplish and/or has means to complete Risk factors supporting recommendation: [] Non-compliance with treatment (acute or chronic) [] Patient has access to or owns firearms and/or stockpiled medications [] Hx Impulsive behavior [] Pending incarceration or homelessness [] Sexual abuse [] Family history and/or exposure to suicide [] Adverse childhood experiences [] Exposure to violence or negative socio-political cultural, and economic fo rces [] Current or hx of substance use/abuse [] Chronic physical pain or other acute medical problem (AIDS, COPD, Cancer, etc) [] Perceived burden on family or others [] Patient has attempted to elope [] Unable to answer and/or unable to identify [] Refuses to agree to a safety plan Protective Factors supporting recommendation: [] Identifies reasons for living [] Future plans/goals [] Engaged in work or School [] Good family support network [] Good social support network [] Responsibility to family [] Belief that suicide is immoral, against their evangelical beliefs [] High spirituality and involvement in rastafari community [] Fear of or dying due to pain and suffering [] Established outpt psychiatric services [] Unable to answer and/or unable to identify (NATO ZIMMER DO) Suicide Risk Level / RN Screen: High Patient was placed in 1:1 monitoring due to risk Risk Assessment Tool Score: High (EVELIO AGUILAR MD) Progress/Results/Core Measures Results/Orders Lab Results Laboratory Tests Test 06/03/22 18:19 Range/Units White Blood Count 6.2 4.3-11.0 10^3/uL Red Blood Count 4.99 3.80-5.11 10^6/uL Hemoglobin 15.1 11.5-16.0 g/dL Hematocrit 45 35-52 % Mean Corpuscular Volume 89 80-99 fL Mean Corpuscular Hemoglobin 30 25-34 pg Mean Corpuscular Hemoglobin Concent 34 32-36 g/dL Red Cell Distribution Width 13.8 10.0-14.5 % Platelet Count 157 130-400 10^3/uL Mean Platelet Volume 11.1 9.0-12.2 fL Immature Granulocyte % (Auto) 0 % Neutrophils (%) (Auto) 55 42-75 % Lymphocytes (%) (Auto) 34 12-44 % Monocytes (%) (Auto) 8 0-12 % Eosinophils (%) (Auto) 1 0-10 % Basophils (%) (Auto) 1 0-10 % Neutrophils # (Auto) 3.4 1.8-7.8 10^3/uL Lymphocytes # (Auto) 2.1 1.0-4.0 10^3/uL Monocytes # (Auto) 0.5 0.0-1.0 10^3/uL Eosinophils # (Auto) 0.1 0.0-0.3 10^3/uL Basophils # (Auto) 0.0 0.0-0.1 10^3/uL Immature Granulocyte # (Auto) 0.0 0.0-0.1 10^3/uL Urine Color YELLOW Urine Clarity CLEAR Urine pH 6.0 5-9 Urine Specific [place] <=1.005 1.016-1.022 Urine Protein NEGATIVE NEGATIVE Urine Glucose (UA) NEGATIVE NEGATIVE Urine Ketones NEGATIVE NEGATIVE Urine Nitrite NEGATIVE NEGATIVE Urine Bilirubin NEGATIVE NEGATIVE Urine Urobilinogen 0.2 < = 1.0 MG/DL Urine Leukocyte Esterase NEGATIVE NEGATIVE Urine RBC (Auto) NEGATIVE NEGATIVE Urine RBC NONE /HPF Urine WBC NONE /HPF Urine Squamous Epithelial Cells 0-2 /HPF Urine Crystals NONE /LPF Urine Bacteria TRACE /HPF Urine Casts NONE /LPF Urine Mucus NEGATIVE /LPF Urine Culture Indicated NO Urine Test NEGATIVE NEGATIVE Sodium Level 138 135-145 MMOL/L Potassium Level 3.9 3.6-5.0 MMOL/L Chloride Level 103 98-107 MMOL/L Carbon Dioxide Level 22 21-32 MMOL/L Anion Gap 13 5-14 MMOL/L Blood Urea Nitrogen 11 7-18 MG/DL Creatinine 0.76 0.60-1.30 MG/DL Estimat Glomerular Filtration Rate 100 BUN/Creatinine Ratio 14 Glucose Level 99 70-105 MG/DL Calcium Level 10.2 H 8.5-10.1 MG/DL Corrected Calcium 8.5-10.1 MG/DL Total Bilirubin 0.6 0.1-1.0 MG/DL Aspartate Amino Transf (AST/SGOT) 48 H 5-34 U/L Alanine Aminotransferase (ALT/SGPT) 117 H 0-55 U/L Alkaline Phosphatase 90 40-136 U/L Total Protein 8.5 H 6.4-8.2 GM/DL Albumin 4.8 H 3.2-4.5 GM/DL Salicylates Level < 5.0 L 5.0-20.0 MG/DL Urine Opiates Screen NEGATIVE NEGATIVE Urine Oxycodone Screen NEGATIVE NEGATIVE Urine Methadone Screen NEGATIVE NEGATIVE Urine Propoxyphene Screen NEGATIVE NEGATIVE Acetaminophen Level < 10 L 10-30 UG/ML Urine Barbiturates Screen NEGATIVE NEGATIVE Ur Tricyclic Antidepressants Screen NEGATIVE NEGATIVE Urine Phencyclidine Screen NEGATIVE NEGATIVE Urine Amphetamines Screen NEGATIVE NEGATIVE Urine Methamphetamines Screen NEGATIVE NEGATIVE Urine Benzodiazepines Screen NEGATIVE NEGATIVE Urine Cocaine Screen NEGATIVE NEGATIVE Urine Cannabinoids Screen NEGATIVE NEGATIVE Serum Alcohol < 10 <10 MG/DL Influenza Type A (RT-PCR) Not Detected Not Detecte Influenza Type B (RT-PCR) Not Detected Not Detecte SARS-CoV-2 RNA (RT-PCR) Not Detected Not Detecte (EVELIO AGUILAR MD) My Orders (EVELIO AGUILAR MD) Vital Signs/I&O 06/04/22 08:10 Temp 36.1 Pulse 62 Resp 16 B/P (MAP) 117/81 Pulse Ox 98 O2 Delivery Room Air (EVELIO AGUILAR MD) Progress Progress Note : Progress Note PT ADVISED ON ARRIVAL OF THE ER PROCESS, SCREENING PROCESS, ETC. AND ADVISED HER THAT SHE WOULD LIKELY BE HERE FOR SEVERAL HOURS BEFORE SHE WOULD EVEN BE SCREENED, AND ALSO INFORMED THAT WE DO NOT HAVE INPATIENT PSYCH CARE HERE IN [place], AND IF IT WAS DETERMINED THAT SHE NEEDED INPATIENT TREATMENT, SHE WOULD BE HELD HERE IN ER UNTIL PLACEMENT COULD BE ARRANGED, WHICH COULD BE FOR GREATER THAN 24 HOURS. PT STATES SHE UNDERSTANDS AND IS AGREEABLE TO THIS. TELE-SITTER HAS BEEN PLACED IN ROOM, AFTER MENTAL HEALTH SCREEN HAS BEEN COMPLETED PT HAS BEEN CLEARED MEDICALLY. PT SLEPT FOR REMAINDER OF THE NIGHT 0600--CARE TURNED OVER TO DR. AGUILAR, PT IS STILL PENDING ACCEPTANCE. [facility] CONTINUES TO ATTEMPT TO FIND PLACEMENT. (NATO ZIMMER DO) Progress Note : Progress Note Around 8 AM the patient was stating she wanted to go home. I personally went and discussed the case with the patient. She is seeing her and now that she is not having the thoughts to harm herself. She says she has counseling on Saturday and has a primary care physician, Dr. Taveras. She says she will discuss with them changing her medications to try to be more effective. She confirms at this time that she is not suicidal or homicidal. She is voluntary and as such she will be discharged. I discussed with her if she has any thoughts to harm herself in the near future to immediately come back to the ER or call 911. (EVELIO AGUILAR MD) Initial ECG Impression Date: Jun 03, 2022 Initial ECG Impression Time: 18:27 Initial ECG Rate: 62 Initial ECG Rhythm: Normal Sinus Initial ECG Impression: Normal (NATO ZIMMER DO) Departure Communication (Admissions) 190--SAVE LINE BEING CONTACTED BY RN AT THIS TIME. THERE ARE 4 PATIENTS AHEAD OF HER TO BE SCREENED. PT UPDATED. 2249--PT HAS JUST STARTED MENTAL HEALTH SCREEN WITH TELE-VISIT. (NATO ZIMMER DO) Impression Primary Impression: Passive suicidal ideations Disposition: 01 HOME, SELF-CARE Condition: Stable Departure-Patient Inst. Decision time for Depature: 07:59 (EVELIO AGUILAR MD) Referrals: [facility] (PCP) Primary Care Physician SOULEYMANE TAVERAS APRN (Family) Primary Care Physician Patient Instructions: OUTPT MENTAL HEALTH SERVICES Add. Discharge Instructions: Please come back to the ER or call 911 if you have any thoughts to harm yourself. Please do follow-up with the counseling appointment on Saturday. Please follow-up with your primary care physician to see if they can either increase the dose of your medicine or change them up. They may also be able to refer you to a psychiatrist as an outpatient. Work/School Note: Work Release Form Date Seen in the Emergency Department: Jun 04, 2022 Return to Work: Jun 05, 2022 Restrictions: No Restrictions NATO ZIMMER DO Jun 03, 2022 18:16 EVELIO AGUILAR MD Jun 04, 2022 08:00
[2022-06-03 18:31] LABS: BASOPHILS % (AUTO) 1 % (0-10); BILIRUBIN,URINE NEGATIVE (NEGATIVE); CLARITY,URINE CLEAR; COLOR,URINE YELLOW; EOSINOPHILS # (AUTO) 0.1 10^3/uL (0.0-0.3); EOSINOPHILS % (AUTO) 1 % (0-10); GLUCOSE, URINE (UA) NEGATIVE (NEGATIVE); HEMATOCRIT 45 % (35-52); HEMOGLOBIN 15.1 g/dL (11.5-16.0); KETONES,URINE NEGATIVE (NEGATIVE); LEUKOCYTE ESTERASE ,URINE NEGATIVE (NEGATIVE); LYMPHOCYTES # (AUTO) 2.1 10^3/uL (1.0-4.0); LYMPHOCYTES % (AUTO) 34 % (12-44); MEAN CORPUSCULAR HEMOGLOBIN 30 pg (25-34); MEAN CORPUSCULAR HGB CONC 34 g/dL (32-36); MEAN CORPUSCULAR VOLUME 89 fL (80-99); MEAN PLATELET VOLUME 11.1 fL (9.0-12.2); MONOCYTES # (AUTO) 0.5 10^3/uL (0.0-1.0); MONOCYTES % (AUTO) 8 % (0-12); NEUTROPHILS # (AUTO) 3.4 10^3/uL (1.8-7.8); NEUTROPHILS % (AUTO) 55 % (42-75); NITRITE,URINE NEGATIVE (NEGATIVE); PLATELET COUNT 157 10^3/uL (130-400); PROTEIN,URINE NEGATIVE (NEGATIVE); WHITE BLOOD COUNT 6.2 10^3/uL (4.3-11.0)
[2022-06-03 18:38] LABS: CHLORIDE 103 MMOL/L (98-107); POTASSIUM 3.9 MMOL/L (3.6-5.0); SODIUM 138 MMOL/L (135-145)
[2022-06-03 18:39] LABS: ALBUMIN 4.8 GM/DL (3.2-4.5)
[2022-06-03 18:40] LABS: CALCIUM 10.2 MG/DL (8.5-10.1)
[2022-06-03 18:41] LABS: GLUCOSE 99 MG/DL (70-105); TOTAL PROTEIN 8.5 GM/DL (6.4-8.2)
[2022-06-03 18:42] LABS: CARBON DIOXIDE 22 MMOL/L (21-32)
[2022-06-03 18:43] LABS: AMPHETAMINE SCREEN, URINE NEGATIVE (NEGATIVE); BARBITURATE SCREEN URINE NEGATIVE (NEGATIVE); BENZODIAZEPINES SCREEN URINE NEGATIVE (NEGATIVE); BILIRUBIN,TOTAL 0.6 MG/DL (0.1-1.0); CANNABINOID SCREEN, URINE NEGATIVE (NEGATIVE); COCAINE SCREEN URINE NEGATIVE (NEGATIVE); HCG,QUALITATIVE URINE NEGATIVE (NEGATIVE); METHADONE STAT NEGATIVE (NEGATIVE); OPIATE SCREEN URINE NEGATIVE (NEGATIVE); OXYCODONE STAT NEGATIVE (NEGATIVE); PROPOXYPHENE STAT NEGATIVE (NEGATIVE); TRICYCLIC ANTIDEPRESSANTS SCRE NEGATIVE (NEGATIVE)
[2022-06-03 18:45] LABS: ALKALINE PHOSPHATASE 90 U/L (40-136); CREATININE SERUM 0.76 MG/DL (0.60-1.30); GFR ESTIMATED 100
[2022-06-03 18:46] LABS: ACETAMINOPHEN < 10 UG/ML (10-30); BACTERIA,URINE TRACE /HPF; BUN/CREATININE RATIO 14; SQUAMOUS EPITHELIAL CELL,UR 0-2 /HPF
[2022-06-03 18:47] LABS: SALICYLATE < 5.0 MG/DL (5.0-20.0)
[2022-06-03 18:48] LABS: ALANINE AMINOTRANSFERASE 117 U/L (0-55)
[2022-06-04 08:10] VITALS: BP 117/81
== END 2022-06-04 08:10 | disposition home or self-care (01) ==
LOC: EDUNIT# 17:58 → ER 18:00
DX: R45.851 Suicidal ideations (principal); F17.210 Nicotine dependence, cigarettes, uncomplicated; Z20.822 Contact with and (suspected) exposure to COVID-19; Z28.310 Unvaccinated for COVID-19
CPT/HCPCS: 80053; 80306; 81000; 84703; 85025; 87636; 93005; 99284; G0480 ×3; 36415; 80320; 80329

== ENCOUNTER 2022-07-13 10:35 | Emergency (ER) | payer SELFPAY ==
[~2022-07-13] VITALS: Ht 162.6 cm; Wt 87.5 kg
--- NOTE | 2022-07-13 11:21 | ED Headache ---
General Chief Complaint: Head/Cervical Problems Stated Complaint: MIGRAINE Nursing Triage Note: PT AMBULATE TO ROOM FT2 WITH C/O MIGRAINE HEADACHE. PT STATES SHE HAS AN APPT WITH PCP FOR THIS C/O. Source: patient Exam Limitations: no limitations History of Present Illness Date Seen by Provider: Jul 13, 2022 Time Seen by Provider: 11:08 Initial Comments Here with report of migraine type headache on the right side that started about 4 days ago and has persisted since. She has tried Excedrin Migraine and that is not helping. It was worse today and now she has tension in her neck as well. No fever or chills. Does have a little nausea but no vomiting. No other upper respiratory or constitutional symptoms. Timing/Duration: other (4 days) Severity/Quality: moderate, pressure, throbbing Location: frontal, parietal (right) Prior Headaches/Recent Trauma: occasional headaches Associated Symptoms: No confusion, No fatigue, No fever/chills, No nausea/vomiting, No weakness Allergies and Home Medications Allergies Coded Allergies: No Known Drug Allergies (Unverified , 12/14/13) Patient Home Medication List Home Medication List Reviewed: Yes Amoxicillin (Amoxicillin) 500 Mg Capsule, 500 MG PO TID Prescribed by: PRASHANT COLLINS on 03/05/22 0839 Clindamycin HCl (Clindamycin HCl) 300 Mg Capsule, 600 MG PO BID WITH MEALS Prescribed by: MAGGIE BORDEN MD on 03/07/22 0336 Hydrocodone/Acetaminophen (Hydrocodone/Acetaminophen 5 MG/325 MG TAB) 1 Each Tablet, 1 TAB PO Q4-6HR Prescribed by: SHAMEKA SAM on 09/08/19 1222 Metronidazole (Flagyl) 500 Mg Tablet, 500 MG PO BID Prescribed by: SHAMEKA SAM on 03/11/20 1812 Oxycodone HCl (Oxycodone HCl) 5 Mg Capsule, 5 MG PO Q6H PRN for markel Prescribed by: PRASHANT COLLINS on 09/25/19 1701 Sulfamethoxazole/Trimethoprim (Bactrim Ds Tablet) 1 Each Tablet, 1 EACH PO BID WITH MEALS Prescribed by: PRASHANT COLLINS on 09/25/19 1549 Review of Systems Review of Systems Constitutional: No chills, No fever Eyes: Blurred Vision, Photophobia Respiratory: No cough, No short of breath Cardiovascular: no symptoms reported Gastrointestinal: No nausea, No vomiting Musculoskeletal: muscle stiffness; No muscle weakness; neck pain Psychiatric/Neurological: Headache; Denies Numbness, Denies Tingling, Denies Weakness Past Jdzviud-Wkttdt-Iloiic Hx Patient Social History Tobacco Use?: Yes Tobacco type used: Cigarettes Smoking Status: Heavy Tobacco Smoker Smokeless Tobacco Frequency: Never a User Use of E-Cig and/or Vaping dev: No Use of E-Cig and/or Vaping Jimenez: Never a User Substance use?: No Alcohol Use?: No Pt feels they are or have been: No Past Medical History Surgery/Hospitalization HX: HEPATITIS C, PTSD, BIPOLAR 1, PANIC DISORDER, MOOD DISORDER, DEPRESSION, FIBROMYALGIA, SCOLIOSIS, LIVER DISEASE Surgeries: Yes (LAP ABD SURG) Abdominal, Gallbladder, Hysterectomy, Orthopedic, 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 Respiratory: No Cardiac: No Neurological: Yes Headaches /Migraines Reproductive Disorders: Yes Female Reproductive Disorders: 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, 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 Genitourinary: No Gastrointestinal: Yes (HEPATITIS C--NO TREATMENT; FATTY LIVER) Liver Disease/Jaundice, Hepatitis Musculoskeletal: Yes (disk replacement- lumbar) Degenerate Disk Disease, Fibromyalgia, Scoliosis, Chronic Back Pain Endocrine: No HEENT: Yes (DENTAL ISSUES) Cancer: No Psychosocial: Yes (MULTIPLE PSYCH ADMITS; PANIC DISORDER) Anxiety, PTSD, Suicide Attempts, Bipolar, Depression Integumentary: No Blood Disorders: Yes ("BLOOD CLOTTING DISEASE"--BUT NEVER 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 OR ANTICOAGULATION) Family Medical History Reviewed Nursing Family Hx Physical Exam Vital Signs Vital Signs - First Documented 07/13/22 11:01 Temp 36.8 Pulse 56 Resp 17 B/P (MAP) 130/81 (97) O2 Delivery Room Air Capillary Refill : Less Than 3 Seconds Height, Weight, BMI Height: 5'5" Weight: 150lbs. oz. 68.488662ba; 33.00 BMI Method:Stated General Appearance: WD/WN, no apparent distress Neck: full range of motion, supple, tender lateral (Mild tension and tenderness in the trapezius bilateral); No tender midline Cardiovascular: regular rate, rhythm, no murmur Respiratory: lungs clear, normal breath sounds Extremities: normal range of motion, non-tender, normal inspection Psychiatric: alert, oriented x 3 Crainal Nerves: normal hearing, normal speech Motor/Sensory: no motor deficit, no sensory deficit Skin: normal color, warm/dry Progress/Results/Core Measures Results/Orders My Orders Orders - PER ENGLE MD Ketorolac Injection (Toradol Injection) (07/13/22 11:28) Orphenadrine Inj (Ed Only) (Norflex Inje (07/13/22 11:28) Ondansetron Oral Dissolve Tab (Zofran (07/13/22 11:28) Promethazine Injection (Phenergan Injec (07/13/22 13:15) Diphenhydramine Tablet (Benadryl Tablet) (07/13/22 13:15) Dexamethasone Injection (Decadron Inje (07/13/22 13:15) Medications Given in ED Current Medications Medications Dose Ordered Sig/Sena Route Start Time Stop Time Status Last Admin Dose Admin Dexamethasone Sodium Phosphate 10 mg ONCE ONCE IM 07/13/22 13:15 07/13/22 13:18 DC 07/13/22 13:22 10 MG Diphenhydramine HCl 25 mg ONCE ONCE PO 07/13/22 13:15 07/13/22 13:18 DC 07/13/22 13:22 25 MG Vital Signs/I&O 07/13/22 11:01 Temp 36.8 Pulse 56 Resp 17 B/P (MAP) 130/81 (97) O2 Delivery Room Air Blood Pressure Mean: 97 Progress Progress Note : Progress Note Seen and evaluated. Toradol 60 mg IM, Norflex 60 mg IM and Zofran 4 mg p.o. We did discuss [id number] therapy options. 1318: Patient had had some improvement with her headache but now it is back and she is a little frustrated. We will go ahead and give Phenergan 25 mg IM, Decadron 10 mg IM and Benadryl 25 mg p.o. and see how that does for her. I did let her know that that would make her tired but she was okay with that. We will give her a work note for today. Monitor patient. 1349: Overall much improved and she would like to go home. Discharged home with return precautions. Patient verbalized understanding instructions and agreement with plan. Departure Impression Primary Impression: Migraine Qualified Codes: G43.909 - Migraine, unspecified, not intractable, without status migrainosus Additional Impression: Tension type headache Qualified Codes: G44.209 - Tension-type headache, unspecified, not intractable Disposition: HOME, SELF-CARE Condition: Stable Departure-Patient Inst. Decision time for Depature: 13:49 Referrals: [facility] (PCP) Primary Care Physician SOULEYMANE TAVERAS APRN (Family) Primary Care Physician Patient Instructions: Migraines (DC), Tension Headache (DC) Add. Discharge Instructions: All discharge instructions reviewed with patient and/or family. Voiced understanding. You may use IcyHot with lidocaine cream, Aspercreme with lidocaine cream or similar agents to neck to help reduce tension and pain. You may take [id number] ibuprofen up to 600 mg every 8 hours as needed for pain and you may take that with the Excedrin Migraine if you are getting these type of headaches. Follow-up with your doctor in a few days for recheck. Drink plenty of fluids. Return for worse pain, fever, vomiting, weakness, breathing problems or other concerns as needed. PER ENGLE MD Jul 13, 2022 11:21
[2022-07-13] MEDS ORDERED: ONDANSETRON 4 MG (ZOFRAN) ORAL DISSOLVE TAB SL STA (11:28)
[2022-07-13] MEDS ORDERED: ORPHENADRINE 60 MG/2 ML (NORFLEX) AMP (ED ONLY) IM STA (11:28)
[2022-07-13] MEDS ORDERED: KETOROLAC 60 MG/2 ML VIAL IM STA (11:28)
[2022-07-13] MEDS ORDERED: PROMETHAZINE INJ 25 MG/ML (PHENERGAN) AMP IM STA (13:15)
[2022-07-13] MEDS ORDERED: diphenhydrAMINE 25 MG TAB (BENADRYL) PO ONE (13:15)
[2022-07-13 13:57] VITALS: BP 134/92
== END 2022-07-13 13:58 | disposition home or self-care (01) ==
LOC: EDUNIT# 10:35 → ER 10:36
DX: G43.909 Migraine, unspecified, not intractable, without status migrainosus (principal); G44.209 Tension-type headache, unspecified, not intractable; F17.210 Nicotine dependence, cigarettes, uncomplicated; Z28.310 Unvaccinated for COVID-19
CPT/HCPCS: 99284

== ENCOUNTER 2023-06-24 17:22 | Emergency (ER) | payer SELFPAY ==
[~2023-06-24] VITALS: Ht 162.5 cm; Wt 79.5 kg
[2023-06-24] MEDS ORDERED: HYDROcodone/ACETAMINOPHEN 5 MG/325 MG TABLET PO ONE (18:00)
[2023-06-24] MEDS ORDERED: LIDOCAINE 1% INJ 10 ML VIAL INJ ONE (18:00)
[2023-06-24] MEDS ORDERED: ACHD5005 PO (18:22)
[2023-06-24] MEDS ORDERED: CEPH500T PO (18:22)
--- NOTE | 2023-06-24 18:22 | ED Integumentary General ---
General Chief Complaint: Skin/Wound Problems Stated Complaint: BIG LT TOE PAIN Nursing Triage Note: PT TO ED WITH C/O RIGHT BIG TOE WOUND FOR ABOUT ONE MONTH, WORSE THE LAST WEEK. STATES SHE HAS HAD AN INGROWN TOENAIL IN THE PAST THAT HAS HAD TO BE DRAINED AND SHE IS HAVING THE SAME PROBLEMS BEFORE. Source: patient Exam Limitations: no limitations History of Present Illness Date Seen by Provider: Jun 24, 2023 Time Seen by Provider: 17:38 Initial Comments 43-year-old female presents with plaint of left great toe pain for approximately 1 week. She states that the pain originally started 1 month ago, it got better after using mupirocin ointment, but became worse again approximately 1 week ago. She reports redness and swelling. Denies drainage. She reports she has issues with ingrown toenails, she has had to have her toenails cut out before. 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 She denies any fevers. Allergies and Home Medications Allergies Coded Allergies: No Known Drug Allergies (Unverified , 12/14/13) Patient Home Medication List Home Medication List Reviewed: Yes Amoxicillin (Amoxicillin) 500 Mg Capsule, 500 MG PO TID Prescribed by: PRASHANT COLLINS on 03/05/22 0839 Cephalexin (Cephalexin) 500 Mg Tablet, 500 MG PO QID Prescribed by: Tabatha Cortez on 06/24/231821 Clindamycin HCl (Clindamycin HCl) 300 Mg Capsule, 600 MG PO BID WITH MEALS Prescribed by: MAGGIE BORDEN MD on 03/07/22 0336 Hydrocodone/Acetaminophen (Hydrocodone/Acetaminophen 5 MG/325 MG TAB) 1 Each Tablet, 1 TAB PO Q4-6HR Prescribed by: SHAMEKA SAM on 09/08/19 1222 Hydrocodone/Acetaminophen (Hydrocodone-Acetamin 5-325 mg) 5 Mg-325 Mg Tablet, 1 TAB PO Q4H PRN for PAIN-MODERATE (5-7) Prescribed by: Tabatha Cortez on 06/24/23 182 Metronidazole (Flagyl) 500 Mg Tablet, 500 MG PO BID Prescribed by: SHAMEKA SAM on 03/11/20 181 Oxycodone HCl (Oxycodone HCl) 5 Mg Capsule, 5 MG PO Q6H PRN for markel Prescribed by: PRASHANT COLLINS on 09/25/19 1701 Sulfamethoxazole/Trimethoprim (Bactrim Ds Tablet) 1 Each Tablet, 1 EACH PO BID WITH MEALS Prescribed by: PRASHANT COLLINS on 09/25/19 1549 Review of Systems Review of Systems Constitutional: see HPI Past Ehldlnw-Lchvnn-Uesevx Hx Patient Social History Tobacco Use?: Yes Tobacco type used: Cigarettes Smoking Status: Current Everyday Smoker Use of E-Cig and/or Vaping dev: Yes E-Cig or Vaping type used: Nicotine, Marijuana Substance use?: No Alcohol Use?: Yes Alcohol Frequency: Once in a while Immunizations Up To Date First/Initial COVID19 Vaccinat: N/A Second COVID19 Vaccination Brid[place]: N/A Third COVID19 Vaccination Date: N/A Past Medical History Surgery/Hospitalization HX: HEPATITIS C, PTSD, BIPOLAR 1, PANIC DISORDER, MOOD DISORDER, DEPRESSION, FIBROMYALGIA, SCOLIOSIS, LIVER DISEASE Surgeries: Yes (LAP ABD SURG) Abdominal, Gallbladder, Hysterectomy, Orthopedic, 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 Respiratory: No Cardiac: No Neurological: Yes Headaches /Migraines Reproductive Disorders: Yes Female Reproductive Disorders: Menstrual Problems 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, 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 Genitourinary: No Gastrointestinal: Yes (HEPATITIS C--NO TREATMENT; FATTY LIVER) Liver Disease/Jaundice, Hepatitis Musculoskeletal: Yes (disk replacement- lumbar) Degenerate Disk Disease, Fibromyalgia, Scoliosis, Chronic Back Pain Endocrine: No HEENT: Yes (DENTAL ISSUES) Cancer: No Psychosocial: Yes (MULTIPLE PSYCH ADMITS; PANIC DISORDER) Anxiety, PTSD, Suicide Attempts, Bipolar, Depression Integumentary: No Blood Disorders: Yes ("BLOOD CLOTTING DISEASE"--BUT NEVER 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 OR ANTICOAGULATION) Physical Exam Vital Signs Vital Signs - First Documented 06/24/23 17:33 Temp 37.0 Pulse 63 Resp 16 B/P (MAP) 131/78 (95) Pulse Ox 98 Capillary Refill : General Appearance: WD/WN, no apparent distress Neck: supple, normal inspection Cardiovascular: regular rate, rhythm Respiratory: lungs clear, normal breath sounds, no respiratory distress, no accessory muscle use Extremities: normal range of motion Neurologic/Psychiatric: alert, normal mood/affect Skin: warm/dry Skin Problem Location: lower extremities (Left first toe) Skin Problem Character: erythema, swelling, other (Ingrown toenail resulting in infection) Procedures/Interventions Additional Procedures: Digital Block (Left great toe) Progress Digital block performed of left great toe. Toenail lifted, corner cut. Very small amount of bleeding noted. Triple antibiotic ointment applied, nonadherent bandage applied covered with [place]. Progress/Results/Core Measures Results/Orders My Orders Orders - TABATHA DORMAN APRN Hydrocodone/Apap 5/325 Tablet (Hydrocod (06/24/23 18:00) Lidocaine 1% Inj 10 Ml (Xylocaine 1% Inj (06/24/23 18:00) Medications Given in ED Current Medications Medications Dose Ordered Sig/Sena Route Start Time Stop Time Status Last Admin Dose Admin Acetaminophen/ Hydrocodone Bitart 1 ea ONCE ONCE PO 06/24/23 18:00 06/24/23 18:01 DC 06/24/23 17:55 1 EA Lidocaine HCl 10 ml ONCE ONCE INJ 06/24/23 18:00 06/24/23 18:01 DC 06/24/23 17:55 10 ML Vital Signs/I&O 06/24/23 06/24/23 17:33 18:26 Temp 37.0 37.0 Pulse 63 63 Resp 16 16 B/P (MAP) 131/78 (95) 131/78 Pulse Ox 98 98 Blood Pressure Mean: 95 Progress Progress Note : Progress Note Patient seen and evaluated, resting comfortably in recliner, no acute distress. Corner of toenail cut out to relieve pressure, see procedure note. Triple an tibiotic ointment applied to toe, dressing applied. Will discharge with oral antibiotic and pain medication. Patient has mupirocin ointment at home, patient instructed to use large amount twice a day. Discharge instructions and return precautions provided. Departure Impression Primary Impression: Ingrowing toenail with infection Disposition: HOME, SELF-CARE Condition: Stable Departure-Patient Inst. Decision time for Depature: 18:17 Referrals: SOULEYMANE TAVERAS APRN (PCP/Family) Primary Care Physician Patient Instructions: Ingrown Toenail Removal Add. Discharge Instructions: Complete full course of antibiotic as directed. Use a large amount of the mupirocin ointment twice a day. Take [place] as needed for pain, it may cause constipation. It may also make you sleepy. Call your doctor tomorrow to see if she can schedule a quicker follow-up. Return for any new, concerning, or worsening symptoms. All discharge instructions reviewed with patient and/or family. Voiced understanding. Scripts Cephalexin (Cephalexin) 500 Mg Tablet 500 MG PO QID for 7 Days, #28 TAB 0 Refills Prov: TABATHA DORMAN APRN 06/24/23 Hydrocodone/Acetaminophen (Hydrocodone-Acetamin 5-325 mg) 5 Mg-325 Mg Tablet 1 TAB PO Q4H PRN for PAIN-MODERATE (5-7), #10 TAB 0 Refills Prov: TABATHA DORMAN APRN 06/24/23 TABATHA DORMAN APRN Jun 24, 2023 18:22
[2023-06-24 18:26] VITALS: BP 131/78
== END 2023-06-24 18:26 | disposition home or self-care (01) ==
LOC: EDUNIT# 17:22 → ER 17:25
DX: L60.0 Ingrowing nail (principal); F17.210 Nicotine dependence, cigarettes, uncomplicated
CPT/HCPCS: 10060

== ENCOUNTER 2023-08-21 16:57 | Emergency (ER) | payer OTHER ==
[~2023-08-21] VITALS: Ht 162 cm; Wt 79.0 kg
[~2023-08-21 16:57] MED LIST changes: +ACHD5005 PO; +CEPH500T PO
[2023-08-21] MEDS ORDERED: NS IV 1000 ML 1,000 ML IV SCH (17:30)
[2023-08-21] MEDS ORDERED: ONDANSETRON INJECTION 4 MG/2 ML (SDV) IVP ONE (17:30)
[2023-08-21 17:39] LABS: BACTERIA,URINE FEW /HPF; BILIRUBIN,URINE 1+ (NEGATIVE); CLARITY,URINE SLIGHTLY CLOUDY; COLOR,URINE DARK YELLOW; GLUCOSE, URINE (UA) NEGATIVE (NEGATIVE); KETONES,URINE NEGATIVE (NEGATIVE); LEUKOCYTE ESTERASE ,URINE 1+ (NEGATIVE); NITRITE,URINE POSITIVE (NEGATIVE); PH,URINE 6.5 (5-9); PROTEIN,URINE 3+ (NEGATIVE); RBC,URINE TNTC /HPF
--- NOTE | 2023-08-21 17:57 | ED GU-Female ---
General Chief Complaint: - Reproductive Stated Complaint: BACK / ABD PAIN Nursing Triage Note: STARTED HAVING DECREASED URINATION ADN VAGINAL BLEEDING WITH LOWER ABDOMINAL CRAMPING AND DIARRHEA. Source: patient Exam Limitations: no limitations (TABATHA DORMAN APRN) History of Present Illness Date Seen by Provider: Aug 21, 2023 Time Seen by Provider: 17:15 Initial Comments 43-year-old female presents to the ER with complaint of generalized lower abdominal pain and right flank pain for the last 3 days. She states that yesterday she passed some blood and what looks like possible kidney stones, and states she felt better after this. She reports that the pain then returned. She states she has had nausea, no vomiting. Reports 4 episodes of diarrhea yesterday, 2 today. She complains of burning with urination. Denies fevers. She has had a cholecystectomy and hysterectomy. (TABATHA DORMAN APRN) Allergies and Home Medications Allergies Coded Allergies: No Known Drug Allergies (Unverified , 12/14/13) Patient Home Medication List Home Medication List Reviewed: Yes (TABATHA DORMAN APRN) Amoxicillin (Amoxicillin) 500 Mg Capsule, 500 MG PO TID Prescribed by: PRASHANT COLLINS on 03/05/22 0839 Cefpodoxime Proxetil (Cefpodoxime Proxetil) 200 Mg Tablet, 200 MG PO BID Prescribed by: Tabatha Cortez on 08/21/23 193 Cephalexin (Cephalexin) 500 Mg Tablet, 500 MG PO QID Prescribed by: Tabatha Cortez on 06/24/231821 Clindamycin HCl (Clindamycin HCl) 300 Mg Capsule, 600 MG PO BID WITH MEALS Prescribed by: MAGGIE BORDEN MD on 03/07/22 0336 Hydrocodone/Acetaminophen (Hydrocodone/Acetaminophen 5 MG/325 MG TAB) 1 Each Tablet, 1 TAB PO Q4-6HR Prescribed by: SHAMEKA SAM on 09/08/19 1222 Hydrocodone/Acetaminophen (Hydrocodone-Acetamin 5-325 mg) 5 Mg-325 Mg Tablet, 1 TAB PO Q4H PRN for PAIN-MODERATE (5-7) Prescribed by: Tabatha Cortez on 06/24/23 182 Metronidazole (Flagyl) 500 Mg Tablet, 500 MG PO BID Prescribed by: SHAMEKA SAM on 03/11/201811 Ondansetron (Ondansetron Odt) 4 Mg Tab.rapdis, 4 MG SL Q4H PRN for NAUSEA/VOMITING Prescribed by: Tabatha Cortez on 08/21/23 193 Oxycodone HCl (Oxycodone HCl) 5 Mg Capsule, 5 MG PO Q6H PRN for markel Prescribed by: PRASHANT COLLINS on 09/25/19 1701 Sulfamethoxazole/Trimethoprim (Bactrim Ds Tablet) 1 Each Tablet, 1 EACH PO BID WITH MEALS Prescribed by: PRASHANT COLLINS on 09/25/19 1549 Review of Systems Review of Systems Constitutional: see HPI (TABATHA DORMAN APRN) Past Asqerva-Jmhuxa-Sfnmcw Hx Patient Social History Tobacco Use?: Yes Tobacco type used: Cigarettes Smoking Status: Current Everyday Smoker Use of E-Cig and/or Vaping dev: Yes E-Cig or Vaping type used: Nicotine Use of E-Cig and/or Vaping [place]: Current Everyday User Substance use?: Yes Substance type: Marijuana Substance frequency: Couple times a week Alcohol Use?: No Pt feels they are or have been: No (TABATHA DORMAN APRN) Immunizations Up To Date Influenza Vaccine Up-to-Date: No; Not Current First/Initial COVID19 Vaccinat: N/A Second COVID19 Vaccination [place]: N/A Third COVID19 Vaccination Date: N/A (TABATHA DORMAN APRN) Past Medical History Surgery/Hospitalization HX: HEPATITIS C, PTSD, BIPOLAR 1, PANIC DISORDER, MOOD DISORDER, DEPRESSION, FIBROMYALGIA, SCOLIOSIS, LIVER DISEASE HYSTERECTOMY, LUMBAR DISK REPLACEMENT, ABD LAPEROTOMY Surgeries: Yes (LAP ABD SURG) Abdominal, Gallbladder, Hysterectomy, Orthopedic, 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 Respiratory: No Cardiac: No Neurological: Yes Headaches /Migraines Reproductive Disorders: Yes Female Reproductive Disorders: Menstrual Problems 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, 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 Genitourinary: No Gastrointestinal: Yes (HEPATITIS C--NO TREATMENT; FATTY LIVER) Liver Disease/Jaundice, Hepatitis Musculoskeletal: Yes (disk replacement- lumbar) Degenerate Disk Disease, Fibromyalgia, Scoliosis, Chronic Back Pain Endocrine: No HEENT: Yes (DENTAL ISSUES) Cancer: No Psychosocial: Yes (MULTIPLE PSYCH ADMITS; PANIC DISORDER) Anxiety, PTSD, Suicide Attempts, Bipolar, Depression Integumentary: No Blood Disorders: Yes ("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 oz. [id number]; 30.00 BMI Method:Stated General Appearance: WD/WN, mild distress Neck: supple, normal inspection Cardiovascular: regular rate, rhythm Respiratory: lungs clear, normal breath sounds, no respiratory distress, no acc essory muscle use Gastrointestinal: normal bowel sounds, soft, tenderness (Right lower quadrant) Extremities: normal range of motion, normal inspection Neurologic/Psychiatric: alert, normal mood/affect Skin: normal color, warm/dry (TABATHA DORMAN APRN) Progress/Results/Core Measures Suspected Sepsis SIRS Temperature: Pulse: 68 Respiratory Rate: 18 Laboratory Tests 08/21/23 18:00: White Blood Count 7.1 Blood Pressure 138 /81 Mean: 100 Laboratory Tests 08/21/23 18:00: Creatinine 0.74, Platelet Count 144, Total Bilirubin 0.5 (TABATHA DORMAN APRN) Results/Orders Lab Results Laboratory Tests Test 08/21/23 17:10 08/21/23 18:00 Range/Units Urine Color DARK YELLOW Urine Clarity SLIGHTLY CLOUDY Urine pH 6.5 5-9 Urine Specific [place] 1.025 H 1.016-1.022 Urine Protein 3+ H NEGATIVE Urine Glucose (UA) NEGATIVE NEGATIVE Urine Ketones NEGATIVE NEGATIVE Urine Nitrite POSITIVE H NEGATIVE Urine Bilirubin 1+ H NEGATIVE Urine Urobilinogen 0.2 < = 1.0 MG/DL Urine Leukocyte Esterase 1+ H NEGATIVE Urine RBC (Auto) 3+ H NEGATIVE Urine RBC TNTC H /HPF Urine WBC 10-25 H /HPF Urine Squamous Epithelial Cells 5-10 /HPF Urine Crystals NONE /LPF Urine Bacteria FEW H /HPF Urine Casts NONE /LPF Urine Mucus SMALL H /LPF Urine Culture Indicated YES White Blood Count 7.1 4.3-11.0 10^3/uL Red Blood Count 4.60 3.80-5.11 10^6/uL Hemoglobin 14.3 11.5-16.0 g/dL Hematocrit 41 35-52 % Mean Corpuscular Volume 90 80-99 fL Mean Corpuscular Hemoglobin 31 25-34 pg Mean Corpuscular Hemoglobin Concent 35 32-36 g/dL Red Cell Distribution Width 14.1 10.0-14.5 % Platelet Count 144 130-400 10^3/uL Mean Platelet Volume 11.1 9.0-12.2 fL Immature Granulocyte % (Auto) 0 % Neutrophils (%) (Auto) 70 42-75 % Lymphocytes (%) (Auto) 21 12-44 % Monocytes (%) (Auto) 8 0-12 % Eosinophils (%) (Auto) 1 0-10 % Basophils (%) (Auto) 0 0-10 % Neutrophils # (Auto) 5.0 1.8-7.8 10^3/uL Lymphocytes # (Auto) 1.5 1.0-4.0 10^3/uL Monocytes # (Auto) 0.5 0.0-1.0 10^3/uL Eosinophils # (Auto) 0.1 0.0-0.3 10^3/uL Basophils # (Auto) 0.0 0.0-0.1 10^3/uL Immature Granulocyte # (Auto) 0.0 0.0-0.1 10^3/uL Sodium Level 138 135-145 MMOL/L Potassium Level 3.4 L 3.6-5.0 MMOL/L Chloride Level 106 98-107 MMOL/L Carbon Dioxide Level 22 21-32 MMOL/L Anion Gap 10 5-14 MMOL/L Blood Urea Nitrogen 12 7-18 MG/DL Creatinine 0.74 0.60-1.30 MG/DL Estimat Glomerular Filtration Rate 103 BUN/Creatinine Ratio 16 Glucose Level 94 70-105 MG/DL Calcium Level 9.5 8.5-10.1 MG/DL Corrected Calcium 9.2 8.5-10.1 MG/DL Total Bilirubin 0.5 0.1-1.0 MG/DL Aspartate Amino Transf (AST/SGOT) 15 5-34 U/L Alanine Aminotransferase (ALT/SGPT) 19 0-55 U/L Alkaline Phosphatase 91 40-136 U/L C-Reactive Protein High Sensitivity 0.68 H 0.00-0.50 MG/DL Total Protein 7.6 6.4-8.2 GM/DL Albumin 4.4 3.2-4.5 GM/DL Lipase 80 H 8-78 U/L (DEBRA GUARDADO MD) Vital Signs/I&O 08/22/23 00:00 Intake Total 1050 ml Balance 1050 ml (DEBRA GUARDADO MD) Vital Signs/I&O Capillary Refill : Less Than 3 Seconds (TABATHA DORMAN APRN) Blood Pressure Mean: 100 Progress Note : Progress Note Patient seen and evaluated, resting in bed, mild distress. Based on exam and symptoms, differential diagnosis includes but is not limited to pyelonephritis, nephrolithiasis, UTI, appendicitis. Work-up initiated including CBC, CMP, CRP, lipase, UA, urine . IV fluids, Toradol, Zofran ordered. Will order CT after labs. [address] reviewed. CBC grossly normal. CMP grossly normal, potassium slightly decreased 3.4. CRP 0.68. Lipase slightly elevated 80. Urinalysis shows elevated urine specific gravity 1.025, 3+ protein, positive nitrites, 1+ bilirubin, 1+ leukocytes, 3+ RBCs, 10-25 WBCs, few bacteria. CT shows no acute abnormality. No significant hydronephrosis or hydroureter. Rocephin ordered for pyelonephritis. Results discussed with patient. Patient reports improvement in pain after Toradol, but states her pain is starting to return. Will give a one-time dose of [place]. Will also give oral potassium for decreased potassium level. Will discharge with prescription for antibiotic and Zofran. Patient is stable for discharge. Discharge instructions and return precautions provided. (TABATHA DORMAN APRN) Diagnostic Imaging Diagonstic Imaging: CT Plain Films/CT/US/NM/MRI: abdomen, pelvis Comments [facility] [place], [place] NAME: MARIEJOSE LUIS [facility] REC#: [id number] PT STATUS: REG ER : 1980 PHYSICIAN: TABATHA DORMAN APRN ADMIT DATE: 08/21/23/ER Signed Date of Exam:08/21/23 CT ABD/PELVIS WO(KIDNEY STONE) PROCEDURE: CT urinary tract, rule out kidney stone. TECHNIQUE: Multiple contiguous axial images were obtained through the abdomen and pelvis without the use of intravenous contrast. Auto Exposure Controls were utilized during the CT exam to meet ALARA standards for radiation dose reduction. INDICATION: Flank pain COMPARISON: 02/09/2014 Noncontrast images of liver and spleen reveal no focal abnormality. Gallbladder is surgically absent. No pancreatic or adrenal gland abnormality is seen. There is no evidence of renal calculus or mass. No significant hydronephrosis or hydroureter is identified. There is no evidence of ureteric stone. Unopacified bladder is poorly distended which limits evaluation. There is artifact from L5-S1 fusion device. There is no evidence of appendiceal inflammation. IMPRESSION: No evidence of acute abnormality. Dictated by: Dictated on workstation # [id number] Dict: 08/21/231854 Trans: 08/21/231917 CV [id number] Interpreted by: AN HOBBS MD Electronically signed by: AN HOBBS MD 08/21/231917 (TABATHA DORMAN APRN) Departure Impression Primary Impression: Pyelonephritis Disposition: 01 HOME, SELF-CARE Condition: Stable Departure-Patient Inst. Decision time for Depature: 19:33 (TABATHA DORMAN APRN) Referrals: SOULEYMANE TAVERAS APRN (PCP/Family) Primary Care Physician Patient Instructions: Kidney Infection (DC) Add. Discharge Instructions: Complete full course of antibiotic as prescribed. Take Zofran as needed for nausea and vomiting. It may cause constipation. Take Tylenol and ibuprofen as needed for pain. Follow-up with your primary care provider. Return for recurrent vomiting, inability to keep down your antibiotic, or any other new, concerning, or worsening symptoms. All discharge instructions reviewed with patient and/or family. Voiced understanding. Scripts Ondansetron (Ondansetron Odt) 4 Mg Tab.rapdis 4 MG SL Q4H PRN for NAUSEA/VOMITING, #10 TAB 0 Refills Prov: TABATHA DORMAN APRN 08/21/23 Cefpodoxime Proxetil (Cefpodoxime Proxetil) 200 Mg Tablet 200 MG PO BID for 14 Days, #28 TAB 0 Refills Prov: TABATHA DORMAN APRN 08/21/23 ATTENDING PHYSICIAN NOTE: I was physically present as attending physician in the emergency department during the care of this patient, but I was not directly involved in the decision making or delivery of care for this patient. (DEBRA GUARDADO MD) TABATHA DORMAN APRN Aug 21, 2023 17:56 DEBRA GUARDADO MD Aug 22, 2023 12:06
[2023-08-21] MEDS ORDERED: KETOROLAC INJ 15 MG/ML VIAL IVP ONE (18:00)
[2023-08-21 18:08] LABS: BASOPHILS % (AUTO) 0 % (0-10); EOSINOPHILS # (AUTO) 0.1 10^3/uL (0.0-0.3); EOSINOPHILS % (AUTO) 1 % (0-10); HEMATOCRIT 41 % (35-52); HEMOGLOBIN 14.3 g/dL (11.5-16.0); LYMPHOCYTES # (AUTO) 1.5 10^3/uL (1.0-4.0); LYMPHOCYTES % (AUTO) 21 % (12-44); MEAN CORPUSCULAR HEMOGLOBIN 31 pg (25-34); MEAN CORPUSCULAR HGB CONC 35 g/dL (32-36); MEAN CORPUSCULAR VOLUME 90 fL (80-99); MEAN PLATELET VOLUME 11.1 fL (9.0-12.2); MONOCYTES # (AUTO) 0.5 10^3/uL (0.0-1.0); MONOCYTES % (AUTO) 8 % (0-12); NEUTROPHILS % (AUTO) 70 % (42-75); PLATELET COUNT 144 10^3/uL (130-400); WHITE BLOOD COUNT 7.1 10^3/uL (4.3-11.0)
[2023-08-21 18:24] LABS: ALBUMIN 4.4 GM/DL (3.2-4.5); POTASSIUM 3.4 MMOL/L (3.6-5.0)
[2023-08-21 18:25] LABS: CALCIUM 9.5 MG/DL (8.5-10.1)
[2023-08-21 18:26] LABS: TOTAL PROTEIN 7.6 GM/DL (6.4-8.2)
[2023-08-21 18:28] LABS: BILIRUBIN,TOTAL 0.5 MG/DL (0.1-1.0)
[2023-08-21 18:30] LABS: CREATININE SERUM 0.74 MG/DL (0.60-1.30)
[2023-08-21] MEDS ORDERED: cefTRIAXone IV/IM 1,000 MG in NS (IVPB) 50 ML 50 ML IV ONE (18:30)
--- NOTE | 2023-08-21 19:04 | Diagnostic Imaging Report ---
PROCEDURE: CT urinary tract, rule out kidney stone. TECHNIQUE: Multiple contiguous axial images were obtained through the abdomen and pelvis without the use of intravenous contrast. Auto Exposure Controls were utilized during the CT exam to meet ALARA standards for radiation dose reduction. INDICATION: Flank pain COMPARISON: 02/09/2014 Noncontrast images of liver and spleen reveal no focal abnormality. Gallbladder is surgically absent. No pancreatic or adrenal gland abnormality is seen. There is no evidence of renal calculus or mass. No significant hydronephrosis or hydroureter is identified. There is no evidence of ureteric stone. Unopacified bladder is poorly distended which limits evaluation. There is artifact from L5-S1 fusion device. There is no evidence of appendiceal inflammation. IMPRESSION: No evidence of acute abnormality. Dictated by: Dictated on workstation # [id number]
[2023-08-21] MEDS ORDERED: HYDROcodone/ACETAMINOPHEN 10/325 TABLET PO ONE (19:30)
[2023-08-21] MEDS ORDERED: CEFP200T2 PO (19:37)
[2023-08-21] MEDS ORDERED: ONDA4TAB11 SL ×2 (19:37→19:38)
[2023-08-21] MEDS ORDERED: RX-ONDANSETRON 4 MG ODT (ZOFRAN) PPK #4 PO STA (19:38)
[2023-08-21] MEDS ORDERED: POTASSIUM CHLORIDE 20 MEQ TABLET PO ONE (19:45)
[2023-08-21 19:54] VITALS: BP 108/65
== END 2023-08-21 19:56 | disposition home or self-care (01) ==
LOC: EDUNIT# 16:57 → ER 16:58
DX: N12 Tubulo-interstitial nephritis, not specified as acute or chronic (principal); F17.210 Nicotine dependence, cigarettes, uncomplicated; F17.290 Nicotine dependence, other tobacco product, uncomplicated; Z90.49 Acquired absence of other specified parts of digestive tract
CPT/HCPCS: 36415; 74176; 80053; 81000; 83690; 85025; 86141; 87077; 87088; 87186

== ENCOUNTER 2023-09-27 08:37 | Outpatient (CLI) | payer OTHER ==
[~2023-09-27] VITALS: Ht 162 cm; Wt 73.0 kg
[~2023-09-27 08:37] MED LIST changes: +CEFP200T2 PO; +ONDA4TAB11 SL
[2023-09-30] MEDS ORDERED: INHALER INH (13:02)
[2023-09-30] MEDS ORDERED: SERT100T PO ×2 (13:02→14:17)
[2023-09-30] MEDS ORDERED: ALBU8.5H6 IH (13:02)
[2023-09-30] MEDS ORDERED: BUDE10.2 IH ×2 (14:16→14:17)
[2023-09-30] MEDS ORDERED: ALBU8.5H6 INH (14:17)
== END 2023-09-30 14:18 | disposition home or self-care (01) ==
LOC: PREOP 08:37
PROVIDERS: ATTEND Surgery
DX: Z01.818 Encounter for other preprocedural examination (principal)

== ENCOUNTER → 2023-10-07 | Outpatient (CLI) | payer OTHER ==
[~2023-10-07] MED LIST changes: +ALBU8.5H6 IH; +ALBU8.5H6 INH; +BUDE10.2 IH; +INHALER INH; +RT-ALBUTEROL SULF 2.5 MG/3 ML PRE-MIX VIAL INH ONE; +SERT100T PO
== END ==
LOC: RT 14:27
PROVIDERS: ATTEND Nurse Practitioner Family
DX: J98.09 Other diseases of bronchus, not elsewhere classified (principal); J30.9 Allergic rhinitis, unspecified; R06.09 Other forms of dyspnea; R93.89 Abnormal findings on diagnostic imaging of other specified body structures; F12.10 Cannabis abuse, uncomplicated; Z72.0 Tobacco use
CPT/HCPCS: 94060; 94726; 94729